=== PATIENT | female | born 1940 | race Caucasian/White ===

== ENCOUNTER 2025-09-27 11:14 | Outpatient (AMB) | payer MEDICARE, SELFPAY ==
--- NOTE | 2025-09-27 11:19 | A.OFFPC_ITS ---
Vital Signs 09/27/25 11:25 Weight 130 lb BP 133/61 Blood Pressure Location Rt brachial Position Sitting Pulse 61 Pulse Source Pulse Oximeter Temp 97.4 F Temp Source Oral Pulse Oximetry (%) 98 Oxygen Delivery Method Room Air Intake Visit Reasons: FINANCIAL REPORTING ACCOUNTANT - Vascular dementia Accompanied by: Other Relationship Allergies latex Allergy (Mild, Verified 09/27/25 11:26) Itching Medication List - Last Reconciled 09/27/25 by Ric Escobedo MD amlodipine (Norvasc) 10 mg PO DAILY ammonium lactate 5% (Lac-Hydrin Five) 1 appl topical BID aspirin 81 mg PO DAILY atorvastatin 80 mg PO BEDTIME clopidogrel 75 mg PO DAILY divalproex 125 mg PO DAILY docusate sodium (Colace) 100 mg PO DAILY duloxetine 20 mg PO DAILY fluticasone propion-salmeterol 250-50 mcg/dose (Advair Diskus) 1 inh inhalation BID losartan 100 mg PO DAILY melatonin 5 mg PO BEDTIME PRN metformin 500 mg PO BID mirtazapine 7.5 mg PO DAILY pantoprazole 20 mg PO DAILY polyethylene glycol 3350 17 grams PO BID potassium chloride ER 20 mEq PO DAILY Tobacco use date assessed: 09/27/25 Fall risk assessment: 1 Fall in past year Last assessed Fall Risk: 09/27/25 Dental Screening Dental Screen Date: 09/27/25 Did you have a dental visit in the last 12 months?: Yes Was dental information given to patient?: Patient has dentist HPI HPI Comments History of Present Illness Details History of Present Illness The patient is an 85 year old individual presenting to [facility] primary care. Type 2 Diabetes Mellitus: The patient has a history of type 2 diabetes and takes metformin 500 mg twice daily. Fiberglasser denies she uses insulin. The patient has not had a recent ophthalmology exam and has not seen a material flow engineer or aviation program manager since returning home from rehab in July. Vascular Dementia and History of Stroke: The patient has a history of a stroke which led to hospitalization and rehab. Imaging has shown chronic, age-undetermined strokes, and the consulting vascular surgeons and neurologists determined the patient would not benefit from surgery. The patient has a diagnosis of vascular dementia and experiences fluctuations in orientation. The patient's [id number] is the healthcare proxy. Constipation: The patient reports experiencing sharp pain with bowel movements (number two). The pain occurs before defecation, is relieved afterward, but requires the patient to lie down and rest for 15 to 30 minutes. The patient takes Colace nightly, but it has not been effective, and no other treatments have been tried. Asthma: The patient has a history of asthma, which is reportedly well-controlled. The patient uses a fluticasone/salmeterol (Advair) inhaler and has not been hospitalized for asthma, possibly ever. The patient currently needs a refill for the inhaler. Hypertension: The patient has a history of high blood pressure. Current medications for this condition include amlodipine 10 mg and losartan 100 mg. Insomnia, Anxiety, and Depression: The patient has issues with sleep and is diagnosed with anxiety and depression. The patient takes duloxetine 20 mg, melatonin 5 mg, and mirtazapine (Remeron) 7.5 mg, but sleep quality is still not very good. Possible Hepatic Cirrhosis: A CT scan brought to the visit showed findings of possible hepatic cirrhosis, which requires further evaluation. Onychodystrophy: The patient has very poorly maintained toenails and complains about them. A foot doctor appointment was made for December, but a sooner appointment is desired. Medications: - Amlodipine 10 mg for hypertension - Aspirin 81 mg - Atorvastatin 80 mg - Clopidogrel 75 mg - Divalproex, indication not specified - Duloxetine 20 mg for anxiety and depre ssion - Fluticasone/salmeterol (Advair) for as thma - Losartan 100 mg for hypertension - Melatonin 5 mg for sleep - Metformin 500 mg twice a day for type 2 diabetes - Mirtazapine (Remeron) 7.5 mg for sleep - Pantoprazole 20 mg - Potassium chloride, indication presume d to be hypokalemia - Colace nightly for constipation Social History: - Functional Status: The patient primari ly uses a wheelchair. - Level of Activity: The patient receive s physical and occupational therapy, is able to stand, and can take a couple of steps. - Living Situation: The patient lives wi th a nephew and has caregivers throughout the day and evening. - Activities of Daily Living: Caregivers assist with repositioning to prevent pressure sores. - Incontinence: The patient uses pull-up s. - Nutritional Intake: Appetite is report ed to be good. - End-of-Life Care: The patient's code s tatus was recently changed, and a DNR was signed. Diagnostic Results: - Labs: Blood work from August was brou ght to the visit for review. - Imaging: A prior CT scan revealed poss ible hepatic cirrhosis. - Imaging: Prior brain imaging showed ev idence of chronic strokes of undetermined age. - Imaging: A CAT scan did not show the a ppendix. Past Medical History - Asthma - Hypertension - Type 2 Diabetes Mellitus - History of cerebrovascular accident (s troke), with subsequent hospitalization and rehabilitation - Vascular dementia - Anxiety and depression - History of a fall - History of a rash covering the body ap proximately one month ago - History of intermittent redness on the right hip, attributed to sleeping position Health Maintenance - Previous primary care provider was a gisela bhatt practitioner who was reportedly unresponsive to calls. - Immunizations: The patient has receive d a flu shot. - The patient has not had a diabetic eye exam, foot exam, or seen a material flow engineer or aviation program manager since being discharged from rehab. - A Do Not Resuscitate (DNR) order was r ecently signed. [facility] Medical History (Updated 09/27/25 @ 12:29 by Ric Escobedo MD) Dependent for wheelchair mobility Onychodystrophy Xerosis cutis Anxiety and depression Insomnia Elevated blood pressure reading without diagnosis of hypertension Moderate persistent asthma Vascular dementia History of stroke Anxiety with depression Diabetes type 2 Constipation Family History (Updated 09/27/25 @ 11:20 by Tata Villeda [facility]) Mother No problems noted. Father No problems noted. Social History Housing: House Patient Tobacco Use Status: Former Tobacco user service: No Current occupational status: retired Cognitive needs: Yes (wheelchair) Hearing needs: No Vision needs: Yes (rx glasses) Questionnaire PHQ-9 Over the last 2 weeks, how often have you been bothered by any of the following problems? 1. Little interest or pleasure in doing things: not at all 2. Feeling down, depressed, or hopeless: not at all 3. Trouble falling or staying asleep, or sleeping too much: not at all 4. Feeling tired or having little energy: not at all 5. Poor appetite or overeating: not at all 6. Feeling bad about yourself - or that you are a failure or have let yourself or your family down: not at all 7. Trouble concentrating on things, such as reading the newspaper or watching television: not at all 8. Moving or speaking so slowly that other people could have noticed. Or the opposite - being so fidgety or restless that you have been moving around a lot more than usual: not at all 9. Thoughts that you would be better off or of hurting yourself in some way: not at all Total score: 0 Depression Screening Interpretation: Negative Depression Screening Done: Yes Source: Developed by Drs. Pj Tsai, Rolanda Perdue, Vivek Maher and colleagues, with an educational delmis from [employer]. Thrive Questionnaire Date Thrive assessed: 09/27/25 I am a: Patient What is your living situation today?: I have a steady place to live Within the past 12 months, did the food you bought not last and you didn't have the money to get more?: Never true Within the past 12 months, did you worry whether your food would run out before you got money to buy more?: Never true Do you have trouble paying for medicines?: No Do you have trouble getting transportation to medical appointments?: No Do you have trouble paying your heating and electricity bill?: No Do you have trouble taking care of your child, family member or friend?: No Do you have trouble with day-to-day activities such as bathing, preparing meals, shopping, managing finances, etc.?: No Are you currently unemployed and looking for a job?: No Are you interested in more education?: No Please select the resources that you would like help with: None THRIVE Score: 0 AUDIT C Alcohol Use Questionnaire (AUDIT-C) 1. How often do you have a drink containing alcohol?: Never Total Score: 0 HOLDEN-7 AMB Questionnaire HOLDEN-7 Date HOLDEN - 7 assessed: 09/27/25 Feeling nervous, anxious, or on edge: 0 = Not at all Not being able to stop or control worryin = Not at all Worrying too much about different things: 0 = Not at all Trouble relaxin = Not at all Being so restless that it is hard to sit still: 0 = Not at all Becoming easily annoyed or irritable: 0 = Not at all Feeling afraid as if something awful might happen: 0 = Not at all Total HOLDEN-7 score (0-4 normal; 5-9 mild; 10-14 moderate; 15-21 severe): 0 Source: Developed by Drs. Pj Tsai, Rolanda Perdue, Vivek Maher and colleagues, with an educational delmis from [employer]. Review of Systems Narrative Review of Systems - Gastrointestinal: Reports pain with bowel movements and lower abdominal pain. - Neurological: Reports experiencing terrible headaches at times. - Musculoskeletal: Reports knee pain. - Psychiatric: Reports issues with sleep. - Integumentary: Complains of poorly maintained toenails. - Constitutional: Reports good appetite. 10-point ROS reviewed and negative except as noted in HPI Physical exam (Primary Care) Vital Signs: Last Vital Signs Temp 97.4 F 09/27/25 11:25 Pulse 61 09/27/25 11:25 BP 133/61 09/27/25 11:25 Pulse Ox 98 09/27/25 11:25 Oxygen Delivery Method Room Air 09/27/25 11:25 Tobacco/Smoking Status: Tobacco use Status Tobacco use date assessed 09/27/25 09/27/25 11:21 Patient Tobacco Use Status Former Tobacco user 09/27/25 11:33 PHQ-9: PHQ-9 Score PHQ-9: Total score 0 09/27/25 12:25 Depression Screening Interpretation: Negative Thrive Assessment: Date of Thrive Assessment Date Thrive assessed 09/27/25 09/27/25 11:21 Narrative Physical Exam General: Well-appearing, in no acute distress. Vital signs: Within normal limits. HEENT: Normocephalic, atraumatic. PERRLA, EOMI. Conjunctiva clear, sclera anicteric. Oropharynx clear, mucous membranes moist. TMs intact bilaterally. Neck: Supple, no lymphadenopathy, no thyromegaly, no JVD or carotid bruits. Cardiovascular: RRR, normal S1/S2, no murmurs, rubs, or gallops. Peripheral pulses 2+ and symmetric. No edema. Respiratory: Lungs clear to auscultation bilaterally, no wheezes, rales, or rhonchi. Normal effort. Abdomen: Soft, non-tender, non-distended. Normoactive bowel sounds. No hepatosplenomegaly, no masses. MSK: Full range of motion, no joint swelling or deformity. Skin: Warm, dry, intact. No rashes, lesions, or pallor. Dry skin noted. Neuro: Alert and oriented x2. Cranial nerves II-XII intact. Strength 5/5 throughout. Sensation intact. Reflexes 2+ symmetric. In a wheelchair Psych: Appropriate mood and affect. Normal judgment and insight. Complains of depression and anxiety. Office Procedures Flu Questionnaire Does the patient have a severe egg allergy?: No Does the patient have severe life threatening allergies?: No Does the patient have a fever or illness today?: No Has the patient ever had Guillain-[place] Syndrome?: No Has the patient ever had any past reaction to a flu shot?: No Results AMB Hemoglobin A1c AMB Hemoglobin A1c 5.2 % Last Edit by Tata Villeda CMA on 09/27/25 12:2 7 Immunizations Fluarix [id number] (PF) 45 mcg (15 mcg x 3)/0.5 mL IM syringe Performing Provider: Ric Escobedo MD Performing Location: [facility] Administered by: Tata Villeda CMA on 09/27/25 12:25 Dose Route Admin Location Dispensed Lot Number Expiration Date [facility] Front End Developer Javascript Html Css 0.5 mL IM Right Deltoid 0.5 mL [id number] 05/07/26 [id number] [employer] [facility] VIS Given Date VIS Provided VIS Publication Date 09/27/25 Single Vaccine 24 Eligibility Eligibility Date Funding Source Not [facility] Eligible 09/27/25 Private Coding Level of Care Code New Pt Level 4 (11909) Diagnoses Hepatic cirrhosis K74.60 Type 2 diabetes mellitus E11.9 History of stroke Z86.73 Vascular dementia F01.50 Constipation K59.00 Anxiety with depression F41.8 Moderate persistent asthma J45.40 Elevated blood pressure reading without diagnosis of hypertension R03.0 Insomnia G47.00 Anxiety and depression F41.9; F32.A Xerosis cutis L85.3 Onychodystrophy L60.3 Dependent for wheelchair mobility Z99.3 Assessment & Plan Assessment & Plan (1) Hepatic cirrhosis: Code(s): K74.60 - Unspecified cirrhosis of liver (2) Type 2 diabetes mellitus: Code(s): E11.9 - Type 2 diabetes mellitus without complications Category: Medical (3) History of stroke: Code(s): Z86.73 - Personal history of transient ischemic attack (TIA), and cerebral infarction without residual deficits Category: Medical (4) Vascular dementia: Code(s): F01.50 - Vascular dementia, unspecified severity, without behavioral disturbance, psychotic disturbance, mood disturbance, and anxiety Category: Medical (5) Constipation: Code(s): K59.00 - Constipation, unspecified Category: Medical (6) Anxiety with depression: Code(s): F41.8 - Other specified anxiety disorders Category: Medical (7) Moderate persistent asthma: Code(s): J45.40 - Moderate persistent asthma, uncomplicated Category: Medical (8) Elevated blood pressure reading without diagnosis of hypertension: Code(s): R03.0 - Elevated blood-pressure reading, without diagnosis of hypertension Category: Medical (9) Insomnia: Code(s): G47.00 - Insomnia, unspecified Category: Medical (10) Anxiety and depression: Code(s): F41.9 - Anxiety disorder, unspecified; F32.A - Depression, unspecified Category: Medical (11) Xerosis cutis: Code(s): L85.3 - Xerosis cutis Category: Medical (12) Onychodystrophy: Code(s): L60.3 - Nail dystrophy Category: Medical (13) Dependent for wheelchair mobility: Code(s): Z99.3 - Dependence on wheelchair Category: Medical Plan Consent Patient was informed and verbally consented to the use of an ambient scribe for clinic note documentation during this visit. Plan 1. Health Maintenance / Establishing Care - Comprehensive lab work will be ordered, including a hemoglobin A1c, lipid panel, thyroid panel, urinalysis, vitamin B12, folate, vitamin D, and a comprehensive metabolic panel to assess liver and kidney function. - A follow-up visit is scheduled in two weeks to review the lab results and formulate an ongoing care plan. 2. Type 2 Diabetes Mellitus - An A1c will be checked to assess glycemic control before deciding on the necessity of a glucometer. - A referral will be placed for an ophthalmology evaluation to screen for diabetic retinopathy. - A referral will be placed to a material flow engineer. - A referral will be placed for a aviation program manager. 3. Constipation - The patient is advised to start MiraLAX in the morning and at night. - The patient should continue taking Colace as a stool softener. 4. Asthma - A new prescription for fluticasone/salmeterol (Advair) will be sent with three refills. 5. Onychodystrophy - A referral to the in-house podiatry service will be placed for evaluation and nail care. 6. Possible Hepatic Cirrhosis - A referral is provided to [facility] for further evaluation based on prior CT scan findings. 7. Insomnia, Anxiety, And Depression - A referral will be made to [facility] for management of insomnia, anxiety, and depression, with a focus on cognitive behavioral therapy. 8. Xerosis Cutis - A prescription will be sent for a moisturizer Lac-Hydrin for dry skin. 9. Vascular Dementia - Decision-making capacity will be further assessed after obtaining more information and lab results on follow-up, though the presence of dementia and a healthcare proxy is documented. Discussion Notes I met with the patient and the patient's caregiver to establish primary care. We reviewed the patient's extensive medical history, including type 2 diabetes, hypertension, asthma, a history of stroke with resulting vascular dementia, and current issues with constipation and insomnia. I explained that a comprehensive set of labs would be ordered today to establish a baseline. I provided a referral to gastroenterology for evaluation of possible hepatic cirrhosis noted on a prior CT scan. For constipation, I recommended adding MiraLAX to the current Colace regimen. I outlined a comprehensive care plan for diabetes, which includes referrals to ophthalmology, podiatry, a material flow engineer, and a aviation program manager, emphasizing the importance of annual screening. We also discussed the patient's sleep difficulties, anxiety, and depression, and I provided a referral to a behavioral health specialist for non-pharmacological management options like cognitive behavioral therapy. I addressed medication needs by refilling the Advair for asthma and prescribing a cream for dry skin. I informed the caregiver that a summary of our visit and all referrals will be provided, and we scheduled a follow-up appointment in two weeks to review all results and progress. Patient Instructions - Please go to the lab to have your blood drawn today. - Start taking MiraLAX once in the morning and once at night for constipation. You can continue taking your Colace as well. - A prescription for your Advair inhaler has been sent to your pharmacy. - A prescription for a skin cream will be sent for your dry skin. - You have been given a referral for a liver specialist (Gastroenterology). Please call the number on the paper to schedule an appointment. - You have been given a phone number for a specialist ([facility]) to help with sleep, anxiety, and depression. Please call them to schedule an appointment. - You will receive phone calls to set up appointments with a foot doctor (natural history collections curator), an eye doctor (lead solutions architect), a material flow engineer, and a aviation program manager. - Please return to the clinic for a follow-up appointment in two weeks to go over your lab results. Medical Decision Making The patient is an 85-year-old individual with multiple, complex chronic conditions including vascular dementia, presenting to [facility] primary care. The immediate goal is to perform a comprehensive assessment, consolidate care, and address acute concerns. A full lab panel, including CMP, CBC, A1c, thyroid studies, and vitamin levels, is necessary for a baseline metabolic and nutritional assessment, particularly given the finding of possible hepatic cirrhosis on a prior CT. Given this CT finding, a referral to gastroenterology is prudent for specialist evaluation. The patient's uncontrolled constipation with associated pain, which has not responded to a stool softener alone, warrants the addition of an osmotic laxative such as MiraLAX. The patient's diabetes management appears fragmented; initiating referrals to ophthalmology, podiatry, nutrition, and a aviation program manager is essential for comprehensive care and prevention of complications. I am holding off on prescribing a glucometer until the A1c result is available, as routine self-monitoring may not be indicated if the patient is not on insulin and has stable control. The patient's polypharmacy for insomnia, depression, and anxiety with suboptimal results suggests a need for a different approach; a referral to behavioral health for non-pharmacological interventions like CBT is a more appropriate step before attempting medication adjustments. A follow-up in two weeks will allow for review of initial test results and assessment of progress on the initiated referrals, which will guide further management. Total Time Statement 30 min Total time spent caring for the patient today includes pre-visit chart review, documentation, review of laboratory and diagnostic imaging results, medication reconciliation, medically necessary evaluation, counseling on diagnoses, care coordination, ordering appropriate tests and medications, review of tests performed by other providers, reporting test results to the patient, and communication with other healthcare providers. Orders: Orders Hepatitis B Surface Antigen Today Z13.9 - Encounter for screening, unspecified Syphilis Screen Today Z13.9 - Encounter for screening, unspecified Comprehensive Met. Panel Today Z13.9 - Encounter for screening, unspecified Hepatitis C Antibody Today Z13.9 - Encounter for screening, unspecified HIV Ab/Ag Today Z13.9 - Encounter for screening, unspecified UA CC w/rflx Micro + Cult Today Z13.9 - Encounter for screening, unspecified AMB Hemoglobin A1c Today Z13.9 - Encounter for screening, unspecified Magnesium Today Z13.9 - Encounter for screening, unspecified Vitamin D 1,25 dihydroxy Today Z13.9 - Encounter for screening, unspecified Hepatitis B Surface Antibody Today Z13.9 - Encounter for screening, unspecified Complete Blood Count Auto Diff Today Z13.9 - Encounter for screening, unspecified TSH reflex Free T4 Today Z13.9 - Encounter for screening, unspecified Lipid Panel Today Z13.9 - Encounter for screening, unspecified Vitamin B12 and Folate Today Z13.9 - Encounter for screening, unspecified Hemoglobin A1c Today Z13.9 - Encounter for screening, unspecified Influenza [id number] Immunization Today Z23 - Encounter for immunization Referrals Nurse Navigator Referral E11.9 - Type 2 diabetes mellitus without complications Nutrition/Dietitian Referral E11.9 - Type 2 diabetes mellitus without complications Ophthalmology Referral E11.9 - Type 2 diabetes mellitus without complications Gastroenterology Referral K74.60 - Unspecified cirrhosis of liver Podiatry Referral E11.9 - Type 2 diabetes mellitus without complications Medications: New polyethylene glycol 3350 17 grams PO BID 476 grams 0RF K59.00 - Constipation, unspecified ammonium lactate 5% (Lac-Hydrin Five) 1 appl topical BID 226 grams 0RF fluticasone propion-salmeterol 250-50 mcg/dose (Advair Diskus) 1 inh inhalation BID 60 ea 3RF
[2025-09-27 11:25] VITALS: BP 133/61; PULSE 61; TEMP 36.3; O2SAT 98
--- OUTSIDE RECORDS SUMMARY | 2025-09-27 17:28 | XMS_ITS | Encounter Summary ---
Author Organization [facility] Address [address] [place] [address] Care Team Providers Care Charter Bus Driver Name Role Phone Flaquita Acevedo MD Primary Care Provider Encounter Details Date Type Department Care Team (Latest Contact Info) Description 05/18/2025 Lab Requisition [facility] - Main Lab 299 [facility] [place] [address] Flaquita Acevedo MD [address] [place] [phone] Chronic obstructive pulmonary disease, unspecified (CMS/HCC V24, CMS/HCC V28); Type 2 diabetes mellitus without complications (CMS/HCC V24, CMS/HCC V28); Dizziness and giddiness; Cerebral infarction, unspecified (CMS/HCC V24, CMS/HCC V28) Social History Tobacco Use Types Packs/Day Years Used Date Smoking Tobacco: Every Day Cigarettes Smokeless Tobacco: Never Alcohol Use Standard Drinks/Week Comments No 0 (1 standard drink = 0.6 oz pur e alcohol) Comments Unknown Sex and Gender Information Value Date Recorded Sex Assigned at Not on file Legal Sex Female 5:56 PM EST Gender Identity Not on file Sexual Orientation Not on file documented as of this encounter Plan of Treatment Not on file documented as of this encounter Procedures Procedure Name Priority Date/Time Associated Diagnosis Comments CBC WITH AUTO DIFFERENTIAL Routine 05/18/2025 7:20 AM EDT Chronic obstructive pulmonary disease, unspecified (CMS/HCC V24, CMS/HCC V28) Type 2 diabetes mellitus without complications (CMS/HCC V24, CMS/HCC V28) Dizziness and giddiness Cerebral infarction, unspecified (CMS/HCC V24, CMS/HCC V28) CBC AND DIFFERENTIAL Routine 05/18/2025 7:20 AM EDT Chronic obstructive pulmonary disease, unspecified (CMS/HCC V24, CMS/HCC V28) Type 2 diabetes mellitus without complications (CMS/HCC V24, CMS/HCC V28) Dizziness and giddiness Cerebral infarction, unspecified (CMS/HCC V24, CMS/HCC V28) AMMONIA Routine 05/18/2025 7:20 AM EDT Chronic obstructive pulmonary disease, unspecified (CMS/HCC V24, CMS/HCC V28) Type 2 diabetes mellitus without complications (CMS/HCC V24, CMS/HCC V28) Dizziness and giddiness Cerebral infarction, unspecified (CMS/HCC V24, CMS/HCC V28) COMPREHENSIVE METABOLIC PANEL Routine 05/18/2025 7:20 AM EDT Chronic obstructive pulmonary disease, unspecified (CMS/HCC V24, CMS/HCC V28) Type 2 diabetes mellitus without complications (CMS/HCC V24, CMS/HCC V28) Dizziness and giddiness Cerebral infarction, unspecified (CMS/HCC V24, CMS/HCC V28) documented in this encounter Results * (ABNORMAL) CBC auto differential (05/18/2025 7:20 AM EDT) [facility] WBC 10.4 4.8 - 10.8 K/mcL LAB HEMETOLOGY METHOD 05/18/2025 9:12 AM EDT [facility] RBC 3.70(L) 3.80 - 4.80 M/mcL LAB HEMETOLOGY METHOD 05/18/2025 9:12 AM T [facility] Hemoglobin 12.3 11.5 - 16.0 g/dL LAB HEMETOLOGY METHOD 05/18/2025 9:12 AM [facility] Hematocrit 36.0 35.0 - 47.0 % LAB HEMETOLOGY METHOD 05/18/2025 9:12 AM [facility] MCV 97.6 79.0 - 98.0 FL LAB HEMETOLOGY METHOD 05/18/2025 9:12 AM [facility] MCH 33.3(H) 27.0 - 32.0 pcg LAB HEMETOLOGY METHOD 05/18/2025 9:12 AM [facility] MCHC 34.2 32.0 - 37.0 g/dL LAB HEMETOLOGY METHOD 05/18/2025 9:12 AM [facility] RDW 13.4 11.0 - 15.0 % LAB HEMETOLOGY METHOD 05/18/2025 9:12 AM [facility] Platelets 331 130 - 400 K/mcL LAB HEMETOLOGY METHOD 05/18/2025 9:12 AM [facility] MPV 11.1(H) 7.0 - 11.0 FL LAB HEMETOLOGY METHOD 05/18/2025 9:12 AM [facility] NRBC 0.0 <1.0 % LAB HEMETOLOGY METHOD 05/18/2025 9:12 AM [facility] NRBC Absolute 0.00 <0.10 K/mcL LAB HEMETOLOGY METHOD 05/18/2025 9:12 AM [facility] Neutrophils Relative 72.1 % LAB HEMETOLOGY METHOD 05/18/2025 9:12 AM [facility] Lymphocytes Relative 14.9 % LAB HEMETOLOGY METHOD 05/18/2025 9:12 AM [facility] Monocytes Relative 10.7 % LAB HEMETOLOGY METHOD 05/18/2025 9:12 AM [facility] Eosinophils Relative 1.2 % LAB HEMETOLOGY METHOD 05/18/2025 9:12 AM [facility] Basophils Relative 0.7 % LAB HEMETOLOGY METHOD 05/18/2025 9:12 AM EDT [facility] Immature Granulocytes Relative 0.4 % LAB HEMETOLOGY METHOD 05/18/2025 9:12 AM EDT [facility] Neutrophils Absolute 7.48(H) 1.50 - 7.00 K/mcL LAB HEMETOLOGY METHOD 05/18/2025 9:12 AM EDT [facility] Lymphocytes Absolute 1.54 1.00 - 5.00 K/mcL LAB HEMETOLOGY METHOD 05/18/2025 9:12 AM EDT [facility] Monocytes Absolute 1.11(H) 0.20 - 1.00 K/mcL LAB HEMETOLOGY METHOD 05/18/2025 9:12 AM EDT [facility] Eosinophils Absolute 0.12 0.00 - 0.50 K/mcL LAB HEMETOLOGY METHOD 05/18/2025 9:12 AM EDT [facility] Basophils Absolute 0.07 0.00 - 0.20 K/mcL LAB HEMETOLOGY METHOD 05/18/2025 9:12 AM EDT [facility] Immature Granulocytes Absolute 0.04(H) 0.00 - 0.03 K/mcL LAB HEMETOLOGY METHOD 05/18/2025 9:12 AM [facility] Blood Venous blood specimen / Unknown Venipuncture / Unknown 05/18/2025 7:20 AM EDT 05/18/2025 8:05 AM EDT us Flaquita Acevedo MD LAB BLOOD ORDERABLES Final Resu lt [facility] [address] [place] [address], * Ammonia (05/18/2025 7:20 AM EDT) Ammonia 18 11 - 35 mcmol/L LAB CHEMISTRY METHOD 05/18/2025 8:38 AM [facility] Blood Venous blood specimen / Unknown Venipuncture / Unknown 05/18/2025 7:20 AM EDT 05/18/2025 8:05 AM EDT us Flaquita Acevedo MD LAB BLOOD ORDERABLES Final Resu lt [facility] [address] [place] [address], * (ABNORMAL) Comprehensive metabolic panel (05/18/2025 7:20 AM EDT) Sodium 140 133 - 145 mmol/L LAB CHEMISTRY METHOD 05/18/2025 9:38 AM [facility] Potassium 3.8 3.5 - 5.5 mmol/L LAB CHEMISTRY METHOD 05/18/2025 9:38 AM [facility] Chloride 109 96 - 110 mmol/L LAB CHEMISTRY METHOD 05/18/2025 9:38 AM [facility] CO2 23 21 - 32 mmol/L LAB CHEMISTRY METHOD 05/18/2025 9:38 AM [facility] Anion Gap 8 3 - 11 LAB CHEMISTRY METHOD 05/18/2025 9:38 AM [facility] Glucose 128(H) 70 - 100 mg/dL LAB CHEMISTRY METHOD 05/18/2025 9:38 AM [facility] BUN 21 5 - 25 mg/dL LAB CHEMISTRY METHOD 05/18/2025 9:38 AM [facility] Creatinine 0.66 0.50 - 1.10 mg/dL LAB CHEMISTRY METHOD 05/18/2025 9:38 AM [facility] eGFR 87 >=60 mL/min/1. 73m2 LAB CHEMISTRY METHOD 05/18/2025 9:38 AM [facility] Comment:Calculation based on the Chronic Kidney Disease Epidemiology Collaboration (CKD-EPI) equation refit without adjustment for race. BUN/Creatinine Ratio 31.8 LAB CHEMISTRY METHOD 05/18/2025 9:38 AM T [facility] Calcium 9.9 8.5 - 10.5 mg/dL LAB CHEMISTRY METHOD 05/18/2025 9:38 AM [facility] AST (SGOT) 21 10 - 42 unit/L LAB CHEMISTRY METHOD 05/18/2025 9:38 AM [facility] ALT (SGPT) 20 10 - 60 unit/L LAB CHEMISTRY METHOD 05/18/2025 9:38 AM [facility] Alkaline Phosphatase 194(H) 42 - 121 unit/L LAB CHEMISTRY METHOD 05/18/2025 9:38 AM [facility] Total Protein 6.6 6.0 - 8.0 g/dL LAB CHEMISTRY METHOD 05/18/2025 9:38 AM [facility] Albumin 3.6 3.2 - 5.0 g/dL LAB CHEMISTRY METHOD 05/18/2025 9:38 AM [facility] Total Bilirubin 1.7(H) 0.0 - 1.4 mg/dL LAB CHEMISTRY METHOD 05/18/2025 9:38 AM [facility] Blood Venous blood specimen / Unknown Venipuncture / Unknown 05/18/2025 7:20 AM EDT 05/18/2025 8:05 AM EDT us Flaquita Acevedo MD LAB BLOOD ORDERABLES Final Resu lt [facility] [address] [place] [address], [place] [phone] documented in this encounter Visit Diagnoses Diagnosis Chronic obstructive pulmonary disease, unspecified ([facility] V24, [facility] V28) Type 2 diabetes mellitus without complications ([facility] V24, [facility] V28) Dizziness and giddiness Cerebral infarction, unspecified ([facility] V24, CMS/[facility] V28) documented in this encounter Care Teams Charter Bus Driver Relationship Specialty Start Date End Date Flaquita Acevedo MD [address] [place] [phone] PCP - General Hospitalist Medicine 05/03/25 documented as of this encounter
--- OUTSIDE RECORDS SUMMARY | 2025-09-27 17:28 | XMS_ITS | Encounter Summary ---
Author Organization [facility] Address [address] [place] [address] Care Team Providers Care Forest Botany Instructor Name Role Phone Flaquita Acevedo MD Primary Care Provider [phone] Encounter Details Date Type Department Care Team (Latest Contact Info) Description 05/15/[address] [facility] - Main Lab [address] [facility] [place] [address] Flaquita Acevedo MD [address] [place] [id number] Type 2 diabetes mellitus without complications (CMS/HCC V24, CMS/HCC V28); Essential (primary) hypertension; Hyperlipidemia, unspecified Social History Tobacco Use Types Packs/Day Years [...] Procedure Name Priority Date/Time Associated Diagnosis Comments COMPLETE BLOOD COUNT Routine 05/15/2025 5:35 AM EDT Type 2 diabetes mellitus without complications (CMS/HCC V24, CMS/HCC V28) Essential (primary) hypertension Hyperlipidemia, unspecified BASIC METABOLIC PANEL Routine 05/15/2025 5:35 AM EDT Type 2 diabetes mellitus without complications (CMS/HCC V24, CMS/HCC V28) Essential (primary) hypertension Hyperlipidemia, unspecified documented in this encounter Results * (ABNORMAL) Basic metabolic panel (05/15/2025 5:35 AM EDT) Sodium 141 133 - 145 mmol/L LAB CHEMISTRY METHOD 05/15/2025 9:01 AM [facility] Potassium 3.6 3.5 - 5.5 mmol/L LAB CHEMISTRY METHOD 05/15/2025 9:01 AM [facility] Chloride 107 96 - 110 mmol/L LAB CHEMISTRY METHOD 05/15/2025 9:01 AM [facility] CO2 27 21 - 32 mmol/L LAB CHEMISTRY METHOD 05/15/2025 9:01 AM [facility] Anion Gap 7 3 - 11 LAB CHEMISTRY METHOD 05/15/2025 9:01 AM [facility] Glucose 105(H) 70 - 100 mg/dL LAB CHEMISTRY METHOD 05/15/2025 9:01 AM [facility] BUN 23 5 - 25 mg/dL LAB CHEMISTRY METHOD 05/15/2025 9:01 AM [facility] Creatinine 0.79 0.50 - 1.10 mg/dL LAB CHEMISTRY METHOD 05/15/2025 9:01 AM [facility] eGFR 74 >=60 mL/min/1. 73m2 LAB CHEMISTRY METHOD 05/15/2025 9:01 AM [facility] Comment:Calculation based on the Chronic Kidney Disease Epidemiology Collaboration (CKD-EPI) equation refit without adjustment for race. BUN/Creatinine Ratio 29.1 LAB CHEMISTRY METHOD 05/15/2025 9:01 AM [facility] Calcium 9.7 8.5 - 10.5 mg/dL LAB CHEMISTRY METHOD 05/15/2025 9:01 AM [facility] Blood Venous blood specimen / Unknown Venipuncture / Unknown 05/15/2025 5:35 AM EDT 05/15/2025 8:05 AM EDT us Flaquita Acevedo MD LAB BLOOD ORDERABLES Final Resu lt [facility] [address] [place] [address], * (ABNORMAL) Complete blood count (05/15/2025 5:35 AM EDT) Pathologist [facility] WBC 8.0 4.8 - 10.8 K/mcL LAB HEMETOLOGY METHOD 05/15/2025 8:39 AM EDT [facility] RBC 3.50(L) 3.80 - 4.80 M/mcL LAB HEMETOLOGY METHOD 05/15/2025 8:39 AM EDT [facility] Hemoglobin 11.8 11.5 - 16.0 g/dL LAB HEMETOLOGY METHOD 05/15/2025 8:39 AM EDT [facility] Hematocrit 35.1 35.0 - 47.0 % LAB HEMETOLOGY METHOD 05/15/2025 8:39 AM EDT [facility] MCV 100.0(H) 79.0 - 98.0 FL LAB HEMETOLOGY METHOD 05/15/2025 8:39 AM EDT [facility] MCH 33.6(H) 27.0 - 32.0 pcg LAB HEMETOLOGY METHOD 05/15/2025 8:39 AM EDT [facility] MCHC 33.6 32.0 - 37.0 g/dL LAB HEMETOLOGY METHOD 05/15/2025 8:39 AM EDT [facility] RDW 13.3 11.0 - 15.0 % LAB HEMETOLOGY METHOD 05/15/2025 8:39 AM EDT [facility] Platelets 328 130 - 400 K/mcL LAB HEMETOLOGY METHOD 05/15/2025 8:39 AM EDT [facility] MPV 10.8 7.0 - 11.0 FL LAB HEMETOLOGY METHOD 05/15/2025 8:39 AM EDT [facility] NRBC 0.0 <1.0 % [facility] 05/15/2025 8:39 AM EDT [facility] NRBC Absolute 0.00 <0.10 K/mcL LAB HEMETOLOGY METHOD 05/15/2025 8:39 AM EDT [facility] Blood Venous blood specimen / Unknown Venipuncture / Unknown 05/15/2025 5:35 AM EDT 05/15/2025 8:05 AM EDT us Flaquita Acevedo MD LAB BLOOD ORDERABLES Final Resu lt [facility] [address] [place] [address], documented in this encounter Visit Diagnoses Diagnosis Type 2 diabetes mellitus without complications (CMS/HCC V24, CMS/HCC V28) Essential (primary) hypertension Unspecified essential hypertension Hyperlipidemia, unspecified documented in this encounter Care Teams Forest Botany Instructor Relationship Specialty Start Date End Date Flaquita Acevedo MD [address] [place] [id number] PCP - General Hospitalist Medicine 05/03/25 documented as of this encounter
--- OUTSIDE RECORDS SUMMARY | 2025-09-27 17:28 | XMS_ITS | Encounter Summary ---
Author Organization [facility] Address [address] [place] [address] Care Team Providers Care Legal Support Specialist Name Role Phone Flaquita Acevedo MD Primary Care Provider [phone] Encounter Details Date Type Department Care Team (Late st Contact Info) Description 05/10/2025 Lab Requisition [facility] - Main Lab [address] [place] [id number] Flaquita Acevedo MD [address] [place] [phone] Essential (primary) hypertension Social History Tobacco Use Types Packs/Day Years [...] Associated Diagnosis Comments COMPLETE BLOOD COUNT Routine 05/10/2025 10:57 AM EDT Essential (primary) hypertension documented in this encounter Results * (ABNORMAL) Complete blood count (05/10/2025 10:57 AM EDT) WBC 8.1 4.8 - 10.8 K/[facility] LAB HEMETOLOGY METHOD 05/10/2025 12:52 PM EDT [facility] RBC 3.70(L) 3.80 - 4.80 M/mcL LAB HEMETOLOGY METHOD 05/10/2025 12:52 PM [facility] Hemoglobin 12.3 11.5 - 16.0 g/dL LAB HEMETOLOGY METHOD 05/10/2025 12:52 PM [facility] Hematocrit 36.7 35.0 - 47.0 % LAB HEMETOLOGY METHOD 05/10/2025 12:52 PM [facility] MCV 99.5(H) 79.0 - 98.0 FL LAB HEMETOLOGY METHOD 05/10/2025 12:52 PM [facility] MCH 33.3(H) 27.0 - 32.0 pcg LAB HEMETOLOGY METHOD 05/10/2025 12:52 PM [facility] MCHC 33.5 32.0 - 37.0 g/dL LAB HEMETOLOGY METHOD 05/10/2025 12:52 PM [facility] RDW 13.6 11.0 - 15.0 % LAB HEMETOLOGY METHOD 05/10/2025 12:52 PM [facility] Platelets 360 130 - 400 K/mcL LAB HEMETOLOGY METHOD 05/10/2025 12:52 PM [facility] MPV 10.6 7.0 - 11.0 FL LAB HEMETOLOGY METHOD 05/10/2025 12:52 PM [facility] NRBC 0.0 <1.0 % LAB HEMETOLOGY METHOD 05/10/2025 12:52 PM [facility] NRBC Absolute 0.00 <0.10 K/mcL LAB HEMETOLOGY METHOD 05/10/2025 12:52 PM [facility] Blood Venous blood specimen / Unknown Venipuncture / Unknown 05/10/2025 10:57 AM EDT 05/10/2025 12:04 PM EDT us Flaquita Acevedo MD LAB BLOOD ORDERABLES Final Resu lt [facility] [address] [place] [address], [place] [phone] documented in this encounter Visit Diagnoses Diagnosis Essential (primary) hypertension Unspecified essential hypertension documented in this encounter Care Teams Legal Support Specialist Relationship Specialty Start Date End Date Flaquita Acevedo MD [address] [place] [phone] PCP - General Hospitalist Medicine 05/03/25 documented as of this encounter
--- OUTSIDE RECORDS SUMMARY | 2025-09-27 17:28 | XMS_ITS | Encounter Summary ---
Author Organization [facility] Address [address] [place] [address] Care Team Providers Care Windlasser Name Role Phone Flaquita Acevedo MD Primary Care Provider [phone] Encounter Details Date Type Department Care Team (Late st Contact Info) Description 06/26/[address] [facility] - Main Lab 299 [facility] [place] [address] Flaquita Acevedo MD [address] [place] [phone] Cerebral infarction, unspecified (CMS/HCC V24, CMS/HCC V28); Essential (primary) hypertension; Chronic obstructive pulmonary disease, unspecified (CMS/HCC V24, CMS/HCC V28) Social History [...] Associated Diagnosis Comments COMPLETE BLOOD COUNT Routine 06/26/2025 10:58 AM EDT Cerebral infarction, unspecified (CMS/HCC V24, CMS/HCC V28) Essential (primary) hypertension Chronic obstructive pulmonary disease, unspecified (CMS/HCC V24, CMS/HCC V28) BASIC METABOLIC PANEL Routine 06/26/2025 10:58 AM EDT Cerebral infarction, unspecified ([facility] V24, [facility] V28) Essential (primary) hypertension Chronic obstructive pulmonary disease, unspecified ([facility] V24, [facility] V28) documented in this encounter Results * (ABNORMAL) Basic metabolic panel (06/26/2025 10:58 AM EDT) Sodium 142 133 - 145 mmol/L LAB CHEMISTRY METHOD 06/26/2025 12:32 PM [facility] Potassium 4.1 3.5 - 5.5 mmol/L LAB CHEMISTRY METHOD 06/26/2025 12:32 PM [facility] Chloride 111(H) 96 - 110 mmol/L LAB CHEMISTRY METHOD 06/26/2025 12:32 PM [facility] CO2 24 21 - 32 mmol/L LAB CHEMISTRY METHOD 06/26/2025 12:32 PM [facility] Anion Gap 7 3 - 11 LAB CHEMISTRY METHOD 06/26/2025 12:32 PM [facility] Glucose 112(H) 70 - 100 mg/dL LAB CHEMISTRY METHOD 06/26/2025 12:32 PM [facility] BUN 14 5 - 25 mg/dL LAB CHEMISTRY METHOD 06/26/2025 12:32 PM [facility] Creatinine 0.66 0.50 - 1.10 mg/dL LAB CHEMISTRY METHOD 06/26/2025 12:32 PM [facility] eGFR 87 >=60 mL/min/1. 73m2 LAB CHEMISTRY METHOD 06/26/2025 12:32 PM [facility] Comment:Calculation based on the Chronic Kidney Disease Epidemiology Collaboration (CKD-EPI) equation refit without adjustment for race. BUN/Creatinine Ratio 21.2 LAB CHEMISTRY METHOD 06/26/2025 12:32 PM [facility] Calcium 9.7 8.5 - 10.5 mg/dL LAB CHEMISTRY METHOD 06/26/2025 12:32 PM EDT [facility] Blood Venous blood specimen / Unknown Venipuncture / Unknown 06/26/2025 10:58 AM EDT 06/26/2025 11:29 AM EDT us Flaquita Acevedo MD LAB BLOOD ORDERABLES Final Resu lt [facility] [address] [place] [address], [place] [phone] * (ABNORMAL) Complete blood count (06/26/2025 10:58 AM EDT) WBC 13.4(H) 4.8 - 10.8 K/mcL LAB HEMETOLOGY METHOD 06/26/2025 11:36 AM EDT [facility] RBC 3.60(L) 3.80 - 4.80 M/[facility] LAB HEMETOLOGY METHOD 06/26/2025 11:36 AM EDT [facility] Hemoglobin 12.3 11.5 - 16.0 g/dL LAB HEMETOLOGY METHOD 06/26/2025 11:36 AM EDT [facility] Hematocrit 39.0 35.0 - 47.0 % LAB HEMETOLOGY METHOD 06/26/2025 11:36 AM EDT [facility] MCV 108.9(H) 79.0 - 98.0 FL LAB HEMETOLOGY METHOD 06/26/2025 11:36 AM EDT [facility] MCH 34.4(H) 27.0 - 32.0 pcg LAB HEMETOLOGY METHOD 06/26/2025 11:36 AM [facility] MCHC 31.5(L) 32.0 - 37.0 g/dL LAB HEMETOLOGY METHOD 06/26/2025 11:36 AM EDT [facility] RDW 15.7(H) 11.0 - 15.0 % LAB HEMETOLOGY METHOD 06/26/2025 11:36 AM EDT [facility] Platelets 356 130 - 400 K/mcL LAB HEMETOLOGY METHOD 06/26/2025 11:36 AM EDT [facility] MPV 11.2(H) 7.0 - 11.0 FL LAB HEMETOLOGY METHOD 06/26/2025 11:36 AM EDT [facility] NRBC 0.0 <1.0 % LAB HEMETOLOGY METHOD 06/26/2025 11:36 AM EDT [facility] NRBC Absolute 0.00 <0.10 K/mcL LAB HEMETOLOGY METHOD 06/26/2025 11:36 AM EDT [facility] Blood Venous blood specimen / Unknown Venipuncture / Unknown 06/26/2025 10:58 AM EDT 06/26/2025 11:29 AM EDT us Flaquita Acevedo MD LAB BLOOD ORDERABLES Final Resu lt [facility] [address] [place] [address], documented in this encounter Visit Diagnoses Diagnosis Cerebral infarction, unspecified (CMS/HCC V24, CMS/HCC V28) Essential (primary) hypertension Unspecified essential hypertension Chronic obstructive pulmonary disease, unspecified (CMS/HCC V24, CMS/HCC V28) documented in this encounter Care Teams Windlasser Relationship Specialty Start Date End Date Flaquita Acevedo MD [address] [place] [phone] PCP - General Hospitalist Medicine 05/03/25 documented as of this encounter
--- OUTSIDE RECORDS SUMMARY | 2025-09-27 17:28 | XMS_ITS | Encounter Summary ---
Author Organization [facility] Address [address] [place] [address] Care Team Providers Care Service Specialist Name Role Phone Flaquita Acevedo MD Primary Care Provider [phone] Encounter Details Date Type Department Care Team (Latest Contact Info) Description 05/25/2025 Lab Requisition [facility] - Main Lab [address] [facility] [place] [address] Flaquita Acevedo MD [address] [place] [phone] Cerebral infarction, unspecified (CMS/HCC V24, CMS/HCC V28); Essential (primary) hypertension; Chronic obstructive pulmonary disease, unspecified (CMS/HCC V24, CMS/HCC V28); Type 2 diabetes mellitus without complications (CMS/HCC V24, CMS/HCC V28) Social History Tobacco [...] Diagnosis Comments CBC WITH AUTO DIFFERENTIAL Routine 05/25/2025 5:35 AM EDT Cerebral infarction, unspecified (CMS/HCC V24, CMS/HCC V28) Essential (primary) hypertension Chronic obstructive pulmonary disease, unspecified (CMS/HCC V24, CMS/HCC V28) Type 2 diabetes mellitus without complications (CMS/HCC V24, CMS/HCC V28) CBC AND DIFFERENTIAL Routine 05/25/2025 5:35 AM EDT Cerebral infarction, unspecified (CMS/HCC V24, CMS/HCC V28) Essential (primary) hypertension Chronic obstructive pulmonary disease, unspecified (CMS/HCC V24, CMS/HCC V28) Type 2 diabetes mellitus without complications (CMS/HCC V24, CMS/HCC V28) BASIC METABOLIC PANEL Routine 05/25/2025 5:35 AM EDT Cerebral infarction, unspecified (CMS/HCC V24, CMS/HCC V28) Essential (primary) hypertension Chronic obstructive pulmonary disease, unspecified (CMS/HCC V24, CMS/HCC V28) Type 2 diabetes mellitus without complications (CMS/HCC V24, CMS/HCC V28) documented in this encounter Results * (ABNORMAL) CBC auto differential (05/25/2025 5:35 AM EDT) [facility] WBC 8.5 4.8 - 10.8 K/mcL LAB HEMETOLOGY METHOD 05/25/2025 10:27 AM [facility] LAB RBC 3.40(L) 3.80 - 4.80 M/mcL LAB HEMETOLOGY METHOD 05/25/2025 10:27 AM [facility] LAB Hemoglobin 11.4(L) 11.5 - 16.0 g/dL LAB HEMETOLOGY METHOD 05/25/2025 10:27 AM [facility] LAB Hematocrit 32.9(L) 35.0 - 47.0 % LAB HEMETOLOGY METHOD 05/25/2025 10:27 AM [facility] LAB MCV 97.9 79.0 - 98.0 FL LAB HEMETOLOGY METHOD 05/25/2025 10:27 AM [facility] LAB MCH 33.9(H) 27.0 - 32.0 pcg LAB HEMETOLOGY METHOD 05/25/2025 10:27 AM [facility] LAB MCHC 34.7 32.0 - 37.0 g/dL LAB HEMETOLOGY METHOD 05/25/2025 10:27 AM [facility] LAB RDW 13.2 11.0 - 15.0 % LAB HEMETOLOGY METHOD 05/25/2025 10:27 AM [facility] LAB Platelets 312 130 - 400 K/mcL LAB HEMETOLOGY METHOD 05/25/2025 10:27 AM [facility] LAB MPV 10.7 7.0 - 11.0 FL LAB HEMETOLOGY METHOD 05/25/2025 10:27 AM [facility] LAB NRBC 0.0 <1.0 % LAB HEMETOLOGY METHOD 05/25/2025 10:27 AM [facility] LAB NRBC Absolute 0.00 <0.10 K/mcL LAB HEMETOLOGY METHOD 05/25/2025 10:27 AM [facility] LAB Neutrophils Relative 72.1 % LAB HEMETOLOGY METHOD 05/25/2025 10:27 AM [facility] Lymphocytes Relative 15.9 % LAB HEMETOLOGY METHOD 05/25/2025 10:27 AM [facility] Monocytes Relative 9.2 % LAB HEMETOLOGY METHOD 05/25/2025 10:27 AM [facility] Eosinophils Relative 1.6 % LAB HEMETOLOGY METHOD 05/25/2025 10:27 AM [facility] Basophils Relative 0.7 % LAB HEMETOLOGY METHOD 05/25/2025 10:27 AM [facility] LAB Immature Granulocytes Relative 0.5 % LAB HEMETOLOGY METHOD 05/25/2025 10:27 AM [facility] LAB Neutrophils Absolute 6.14 1.50 - 7.00 K/mcL LAB HEMETOLOGY METHOD 05/25/2025 10:27 AM EDT [facility] Lymphocytes Absolute 1.35 1.00 - 5.00 K/mcL LAB HEMETOLOGY METHOD 05/25/2025 10:27 AM EDT [facility] Monocytes Absolute 0.78 0.20 - 1.00 K/[facility] LAB HEMETOLOGY METHOD 05/25/2025 10:27 AM EDT [facility] Eosinophils Absolute 0.14 0.00 - 0.50 K/[facility] LAB HEMETOLOGY METHOD 05/25/2025 10:27 AM EDT [facility] Basophils Absolute 0.06 0.00 - 0.20 K/[facility] LAB HEMETOLOGY METHOD 05/25/2025 10:27 AM EDT [facility] Immature Granulocytes Absolute 0.04(H) 0.00 - 0.03 K/[facility] LAB HEMETOLOGY METHOD 05/25/2025 10:27 AM EDT [facility] Blood Venous blood specimen / Unknown Venipuncture / Unknown 05/25/2025 5:35 AM EDT 05/25/2025 9:55 AM EDT us Flaquita Acevedo MD LAB BLOOD ORDERABLES Final Resu lt [facility] [address] [place] [address], * (ABNORMAL) Basic metabolic panel (05/25/2025 5:35 AM EDT) Sodium 141 133 - 145 mmol/L LAB CHEMISTRY METHOD 05/25/2025 10:40 AM EDT [facility] Potassium 3.1(L) 3.5 - 5.5 mmol/L LAB CHEMISTRY METHOD 05/25/2025 10:40 AM EDT [facility] Chloride 105 96 - 110 mmol/L LAB CHEMISTRY METHOD 05/25/2025 10:40 AM EDT [facility] CO2 27 21 - 32 mmol/L LAB CHEMISTRY METHOD 05/25/2025 10:40 AM T [facility] Anion Gap 9 3 - 11 LAB CHEMISTRY METHOD 05/25/2025 10:40 AM [facility] Glucose 86 70 - 100 mg/dL LAB CHEMISTRY METHOD 05/25/2025 10:40 AM [facility] BUN 18 5 - 25 mg/dL LAB CHEMISTRY METHOD 05/25/2025 10:40 AM T [facility] Creatinine 0.59 0.50 - 1.10 mg/dL LAB CHEMISTRY METHOD 05/25/2025 10:40 AM [facility] LAB eGFR 90 >=60 mL/min/1. 73m2 LAB CHEMISTRY METHOD 05/25/2025 10:40 AM [facility] Comment:Calculation based on the Chronic Kidney Disease Epidemiology Collaboration (CKD-EPI) equation refit without adjustment for race. BUN/Creatinine Ratio 30.5 LAB CHEMISTRY METHOD 05/25/2025 10:40 AM [facility] Calcium 9.4 8.5 - 10.5 mg/dL LAB CHEMISTRY METHOD 05/25/2025 10:40 AM [facility] LAB Blood Venous blood specimen / Unknown Venipuncture / Unknown 05/25/2025 5:35 AM EDT 05/25/2025 9:55 AM EDT us Flaquita Acevedo MD LAB BLOOD ORDERABLES Final Resu lt [facility] [address] [place] [address], documented in this encounter Visit Diagnoses Diagnosis Cerebral infarction, unspecified ([facility] V24, [facility] V28) Essential (primary) hypertension Unspecified essential hypertension Chronic obstructive pulmonary disease, unspecified ([facility] V24, [facility] V28) Type 2 diabetes mellitus without complications ([facility] V24, [facility] V28) documented in this encounter Care Teams Service Specialist Relationship Specialty Start Date End Date Flaquita Acevedo MD [address] [place] [id number] PCP - General Hospitalist Medicine 05/03/25 documented as of this encounter
--- OUTSIDE RECORDS SUMMARY | 2025-09-27 17:28 | XMS_ITS | Encounter Summary ---
Author Organization [facility] Address [address] [place] [address] Care Team Providers Care Shark Biologist Name Role Phone Flaquita Acevedo MD Primary Care Provider Encounter Details Date Type Department Care Team (Late st Contact Info) Description 06/30/2025 Lab Requisition [facility] - Main Lab [address] [place] [phone] Flaquita Acevedo MD [address] [place] [phone] Urinary tract infection, site not specified Social History Tobacco Use Types Packs/Day Years [...] Procedure Name Priority Date/Time Associated Diagnosis Comments URINALYSIS WITH REFLEX MICROSCOPIC Routine 06/29/2025 1:20 PM EDT Urinary tract infection, site not specified GOLDBERG URINE CULTURE TUBE Routine 06/29/2025 1:20 PM EDT Urinary tract infection, site not specified URINALYSIS WITH REFLEX MICROSCOPIC Routine 06/29/2025 1:20 PM EDT Urinary tract infection, site not specified documented in this encounter Results * Goldberg urine culture tube (06/29/2025 1:20 PM EDT) Pathologist [facility] Extra Tube Hold for add-ons. 06/30/2025 12:01 PM EDT [facility] Comment:Auto resulted. Urine Urine specimen from urethra / Unknown Non-blood Collection / Unknown 06/29/2025 1:20 PM EDT 06/30/2025 10:33 AM EDT us Flaquita Acevedo MD LAB URINE ORDERABLES Final Resu lt [facility] [address] [place] [address], [place] [phone] * (ABNORMAL) Urinalysis with reflex microscopic (06/29/2025 1:20 PM EDT) Pathologist [facility] Specific [place] Urine 1.021 1.003 - 1.030 LAB URINALYSIS - AUTOMATED METHOD 06/30/2025 12:00 PM [facility] pH, Urine 6.0 5.0 - 8.0 pH LAB URINALYSIS - AUTOMATED METHOD 06/30/2025 12:00 PM [facility] Leukocytes, Urine Moderate(A) Negative LAB URINALYSIS - AUTOMATED METHOD 06/30/2025 12:00 PM [facility] Nitrite, Urine Negative Negative LAB URINALYSIS - AUTOMATED METHOD 06/30/2025 12:00 PM [facility] Protein, Urine 30(A) <=Trace mg/dL LAB URINALYSIS - AUTOMATED METHOD 06/30/2025 12:00 PM [facility] Glucose, Urine Negative Negative mg/dL LAB URINALYSIS - AUTOMATED METHOD 06/30/2025 12:00 PM [facility] Ketones, Urine Trace(A) Negative mg/dL LAB URINALYSIS - AUTOMATED METHOD 06/30/2025 12:00 PM [facility] Urobilinogen , Urine 1.0 0.2 - 1.0 mg/dL LAB URINALYSIS - AUTOMATED METHOD 06/30/2025 12:00 PM [facility] Bilirubin, Urine Small(A) Negative LAB URINALYSIS - AUTOMATED METHOD 06/30/2025 12:00 PM [facility] Blood, Urine Moderate(A) Negative LAB URINALYSIS - AUTOMATED METHOD 06/30/2025 12:00 PM [facility] RBC, Urine 34.8(H) 0 - 4 /HPF LAB URINALYSIS - AUTOMATED METHOD 06/30/2025 12:00 PM [facility] WBC, Urine 76.3(H) 0 - 4 /HPF LAB URINALYSIS - AUTOMATED METHOD 06/30/2025 12:00 PM [facility] Squamous Epithelial, Urine >100(H) 0 - 60 /LPF LAB URINALYSIS - AUTOMATED METHOD 06/30/2025 12:00 PM [facility] Non-Squamous Epithelial, Urine 5-10 TRANSITIONAL EPI /LPF LAB URINALYSIS - AUTOMATED METHOD 06/30/2025 12:00 PM [facility] Bacteria, Urine Negative Negative /HPF LAB URINALYSIS - AUTOMATED METHOD 06/30/2025 12:00 PM [facility] Hyaline Casts, Urine 20.9(H) 0 - 3 /LPF LAB URINALYSIS - AUTOMATED METHOD 06/30/2025 12:00 PM [facility] Urine Urine specimen from urethra / Unknown Non-blood Collection / Unknown 06/29/2025 1:20 PM EDT 06/30/2025 10:33 AM EDT us Flaquita Acevedo MD LAB URINE ORDERABLES Final Resu lt [facility] [address] [place], [place] [address] [phone] documented in this encounter Visit Diagnoses Diagnosis Urinary tract infection, site not specified documented in this encounter Care Teams Shark Biologist Relationship Specialty Start Date End Date Flaquita Acevedo MD [address] [place] [phone] PCP - General Hospitalist Medicine 05/03/25 documented as of this encounter
--- OUTSIDE RECORDS SUMMARY | 2025-09-27 17:28 | XMS_ITS | Encounter Summary ---
Author Organization [facility] Address [address] [place] [address] Care Team Providers Care Director Phone Name Role Phone Flaquita Acevedo MD Primary Care Provider [phone] Encounter Details Date Type Department Care Team (Late st Contact Info) Description 05/03/2025 Lab Requisition [facility] - Main Lab [address] [place] [phone] Flaquita Acevedo MD [address] [place] [phone] Anemia, unspecified; Hypokalemia Social History Tobacco Use Types Packs/Day Years [...] Associated Diagnosis Comments COMPLETE BLOOD COUNT Routine 05/03/2025 5:19 AM EDT Anemia, unspecified Hypokalemia BASIC METABOLIC PANEL Routine 05/03/2025 5:19 AM EDT Anemia, unspecified Hypokalemia documented in this encounter Results * (ABNORMAL) Basic metabolic panel (05/03/2025 5:19 AM EDT) Sodium 143 133 - 145 mmol/L LAB CHEMISTRY METHOD 05/03/2025 10:59 AM [facility] Potassium 3.2(L) 3.5 - 5.5 mmol/L LAB CHEMISTRY METHOD 05/03/2025 10:59 AM [facility] Chloride 107 96 - 110 mmol/L LAB CHEMISTRY METHOD 05/03/2025 10:59 AM [facility] CO2 24 21 - 32 mmol/L LAB CHEMISTRY METHOD 05/03/2025 10:59 AM [facility] Anion Gap 12(H) 3 - 11 LAB CHEMISTRY METHOD 05/03/2025 10:59 AM [facility] Glucose 116(H) 70 - 100 mg/dL LAB CHEMISTRY METHOD 05/03/2025 10:59 AM [facility] BUN 11 5 - 25 mg/dL LAB CHEMISTRY METHOD 05/03/2025 10:59 AM [facility] Creatinine 0.60 0.50 - 1.10 mg/dL LAB CHEMISTRY METHOD 05/03/2025 10:59 AM [facility] eGFR 89 >=60 mL/min/1. 73m2 LAB CHEMISTRY METHOD 05/03/2025 10:59 AM [facility] Comment:Calculation based on the Chronic Kidney Disease Epidemiology Collaboration (CKD-EPI) equation refit without adjustment for race. BUN/Creatinine Ratio 18.3 LAB CHEMISTRY METHOD 05/03/2025 10:59 AM [facility] Calcium 8.6 8.5 - 10.5 mg/dL LAB CHEMISTRY METHOD 05/03/2025 10:59 AM [facility] Blood Venous blood specimen / Unknown Venipuncture / Unknown 05/03/2025 5:19 AM EDT 05/03/2025 8:51 AM EDT us Flaquita Acevedo MD LAB BLOOD ORDERABLES Final Resu lt [facility] [address] [place] [address], * (ABNORMAL) Complete blood count (05/03/2025 5:19 AM EDT) [facility] Signature WBC 6.3 4.8 - 10.8 K/mcL LAB HEMETOLOGY METHOD 05/03/2025 10:26 AM EDT [facility] RBC 3.50(L) 3.80 - 4.80 M/mcL LAB HEMETOLOGY METHOD 05/03/2025 10:26 AM EDT [facility] Hemoglobin 11.6 11.5 - 16.0 g/dL LAB HEMETOLOGY METHOD 05/03/2025 10:26 AM [facility] Hematocrit 34.7(L) 35.0 - 47.0 % LAB HEMETOLOGY METHOD 05/03[facility]25 [facility] MCV 98.9(H) 79.0 - 98.0 FL LAB HEMETOLOGY METHOD 05/03/2025 10:26 AM EDT [facility] MCH 33.0(H) 27.0 - 32.0 pcg LAB HEMETOLOGY METHOD 05/03/2025 10[facility] MCHC 33.4 32.0 - 37.0 g/dL LAB HEMETOLOGY METHOD 05/03/2025 10:26 AM EDT [facility] RDW 13.1 11.0 - 15.0 % LAB HEMETOLOGY METHOD 05/03/2025 10:26 AM EDT [facility] Platelets 342 130 - 400 K/mcL LAB HEMETOLOGY METHOD 05/03/2025 10:[facility] MPV 10.1 7.0 - 11.0 FL LAB HEMETOLOGY METHOD 05/03/2025 10:26 AM EDT [facility] NRBC 0.0 <1.0 % LAB HEMETOLOGY METHOD 05/03/2025 10:26 AM EDT [facility] NRBC Absolute 0.00 <0.10 K/mcL LAB HEMETOLOGY METHOD 05/03/2025 10:26 AM EDT [facility] Blood Venous blood specimen / Unknown Venipuncture / Unknown 05/03/2025 5:19 AM EDT 05/03/2025 8:51 AM EDT us Flaquita Acevedo MD LAB BLOOD ORDERABLES Final Resu lt [facility] [address] [place] [address], [place] [phone] documented in this encounter Visit Diagnoses Diagnosis Anemia, unspecified Hypokalemia Hypopotassemia documented in this encounter Care Teams Director Phone Relationship Specialty Start Date End Date Flaquita Acevedo MD [address] [place] [phone] PCP - General Hospitalist Medicine 05/03/25 documented as of this encounter
--- OUTSIDE RECORDS SUMMARY | 2025-09-27 17:28 | XMS_ITS | Clinical Summary ---
Author Organization [address] [facility] Address [address] [place] [phone] Phone Care Team Providers Care Refrigeration Specialist Name Role Phone Flaquita Acevedo MD Primary Care Provider [phone] Encounters Date Type Department Care Team Description 06/30/2025 Lab Requisition [facility] - Main Lab [address] [place] [address] Flaquita Acevedo MD Urinary tract infection, site not specified from Last 3 Months Surgical History Surgery Date Site/Laterality Comments BACK SURGERY 11/07/15 PROCEDURE: HISTORICAL BACK SURGERY; COMMENT: L3- L4 decompression. BACK SURGERY 11/24/15 PROCEDURE: HISTORICAL BACK SURGERY; COMMENT: redo L3-4,discectomy L2-3, L4-5 FOOT SURGERY Bilateral PROCEDURE: HISTORICAL FOOT SURGERY; COMMENT: Bunionectomy HYSTERECTOMY PROCEDURE: HISTORICAL HYSTERECTOMY; COMMENT: at 31 CHOLECYSTECTOMY PROCEDURE: HISTORICAL CHOLECYSTECTOMY HAND SURGERY 03/17/2016 Left PROCEDURE: HISTORICAL HAND SURGERY COLONOSCOPY 06/2014 PROCEDURE: HISTORICAL COLONOSCOPY; COMMENT: in [place] CATARACT EXTRACTION PROCEDURE: HISTORICAL CATARACT REMOVAL Medical History Medical History Date Comments Asthma 08/14/2016 DX:Asthma Fibromyalgia 08/14/2016 DX:Fibromyalgia Arteriovenous malformation (AVM) 08/14/2016 DX:Arteriovenous malformation (AVM) Hyperlipidemia 08/14/2016 DX:Hyperlipidemi a GERD (gastroesophageal reflux disease) 08/14/2016 DX:GERD (gastroesophageal reflux disease) Lactose intolerance 08/14/2016 DX:Lactose i ntolerance Anxiety 08/14/2016 DX:Anxiety Chronic obstructive pulmonar y disease (COPD) ([facility] V24, CMS/[facility] V28) 08/14/2016 DX:Chronic obstructi ve pulmonary disease (COPD) ([facility]) DDD (degenerative disc disease), lumbar 6 DX:DDD (degenerative disc disease), lumbar Depression with anxiety 08/19/2016 DX:Depre ssion with anxiety Fatty liver 08/14/2016 DX:Fatty liver 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 DX:Flexion c ontracture; COMMENT: Residual, L long finger PIP Flexor tenosynovitis of finger 08/14/2016 D X:Flexor tenosynovitis of finger; COMMENT: Stenosing, L long finger , R thumb - Dr Monte History of GI bleed 08/14/2016 DX:History o f GI bleed IBS (irritable bowel syndrome) 08/14/2016 D X:IBS (irritable bowel syndrome) Iron deficiency anemia 08/14/2016 DX:Iron d eficiency anemia Kidney stone on left side 08/14/2016 DX:Kid karina stone on left side; COMMENT: 11/02/15 CT Low back pain 08/19/2016 DX:Low back pain Migraines 08/14/2016 DX:Migraines Osteoarthritis 08/14/2016 DX:Osteoarthriti s Osteoporosis 08/14/2016 DX:Osteoporosis Restless legs syndrome (RLS) 08/19/2016 DX: Restless legs syndrome (RLS) Spinal stenosis of lumbar region 08/14/2016 DX:Spinal stenosis of lumbar region Type 2 diabetes mellitus wit h microalbuminuria, without long-term current use of insulin ([facility] V24, [facility] V28) 10/14/2017 DX:Type 2 diabetes mellitus with microalbuminuria, without long-term current use of insulin ([facility]) Microalbuminuria 10/14/2017 DX:Microalbumin uria Hypertension 11/18/2017 DX:Hypertension Microalbuminuria 10/14/2017 DX:Microalbumin uria Family History Medical History Relation Name Comments Colon cancer Aunt 1 Leukemia Aunt 2 Diabetes Father Other: Heart attack Father age 61-MD Mental illness Mother depression, a sthma, joint problems Prostate cancer Other Relation Name Status Comments Aunt 1 Aunt 2 Brother Alive Father Other Mother Other Social History Tobacco Use Types Packs/Day Years [...] on file Sexual Orientation Not on file Obstetrics History Plan of Treatment Health Maintenance Due Date Last Done Comments Diabetes: Annual Foot Exam 1952 Diabetes: Annual Retina Eye Exam 1950 Hepatitis A Vaccines (1 of 2 - Risk 2-dose series) 1961 Hepatitis B Vaccines (1 of 3 - Risk 3-dose series) 2002 RSV Immunization Adult Patients (1 - 1-dose 75+ series) 2017 Depression Screening 11/08/2024 Diabetes: Annual Urine Albumin-Creatinine Ratio (uACR) 05/04/2025 Diabetes: Blood Sugar Control Test (HGBA1C) 05/04/2025 03/16/2023 Falls Risk Assessment 05/04/2025 Medicare Annual Wellness Visit 05/04/2025 Social Influencers of Health Screening 05/04/2025 COVID-19 Vaccine ( season) 2025 07/23/2021, 02/02/2021, 01/06/2021 Influenza Vaccine (#1) 2025 , 08/30/2022, 08/16/2022, Additional history exists Diabetes: Annual GFR (Glomerular Filtration Rate) 06/26/2026 06/26/2025, 06/08/2025, 05/25/2025, Additional history exists Hypertension/CHF/CAD Annual BMP Blood Test 06/26/2026 06/26/2025, 06/08/2025, 05/25/2025, Additional history exists DTaP,Tdap,and Td Vaccines (2 - Td or Tdap) 12/07/2027 12/07/2017 Cholesterol Screening (Lipid Panel) 07/06/2029 07/06/2024 Osteoporosis Screening (Bone Density Screening) 01/30/2032 01/29/2022, 04/04/2019 Pneumococcal Vaccine: 50+ Years Completed 12/07/2017, 03/22/2016 Zoster Vaccines Completed 05/02/2018, 02/03/2018 HIB Vaccines Aged Out No longer eligi ble based on patient's age to complete this topic HPV Vaccines Aged Out No longer eligi ble based on patient's age to complete this topic IPV Vaccines Aged Out No longer eligi ble based on patient's age to complete this topic MMR Vaccines Aged Out No longer eligi ble based on patient's age to complete this topic Meningococcal ACWY Vaccine Aged Out N o longer eligible based on patient's age to complete this topic Meningococcal B Vaccine Aged Out No l onger eligible based on patient's age to complete this topic RSV Immunization Patients Under 20 months Aged Out No longer eligible based on patient's age to complete this topic Varicella Vaccines Aged Out No longer eligible based on patient's age to complete this topic Procedures Procedure Name Priority Date/Time Associated Diagnosis Comments GOLDBERG URINE CULTURE TUBE Routine 06/29/2025 1:20 PM EDT Urinary tract infection, site not specified URINALYSIS WITH REFLEX MICROSCOPIC Routine 06/29/2025 1:20 PM EDT Urinary tract infection, site not specified URINALYSIS WITH REFLEX MICROSCOPIC Routine 06/29/2025 1:20 PM EDT Urinary tract infection, site not specified BASIC METABOLIC PANEL Routine 06/26/2025 10:58 AM EDT Cerebral infarction, unspecified (CMS/HCC V24, CMS/HCC V28) Essential (primary) hypertension Chronic obstructive pulmonary disease, unspecified (CMS/HCC V24, CMS/HCC V28) NANCY DEXA AXIAL SKELETON Routine 04/04/2019 2:45 PM EDT Asymptomatic menopausal state from Last 3 Months or Most Recently Relevant to Health Maintenance Results * (ABNORMAL) Urinalysis with reflex microscopic (06/29/2025 1:20 PM EDT) Specific [place] Urine 1.021 1.003 - 1.030 LAB URINALYSIS - AUTOMATED METHOD 06/30/2025 12:00 PM EDT [facility] pH, Urine 6.0 5.0 - 8.0 pH LAB URINALYSIS - AUTOMATED METHOD 06/30/2025 12:00 PM EDT [facility] Leukocytes, Urine Moderate(A) Negative LAB URINALYSIS - AUTOMATED METHOD 06/30/2025 12:00 PM [facility] Nitrite, Urine Negative Negative LAB URINALYSIS - AUTOMATED METHOD 06/30/2025 12:00 PM [facility] Protein, Urine 30(A) <=Trace mg/dL LAB URINALYSIS - AUTOMATED METHOD 06/30/2025 12:00 PM [facility] Glucose, Urine Negative Negative mg/dL LAB URINALYSIS - AUTOMATED METHOD 06/30/2025 12:00 PM [facility] Ketones, Urine Trace(A) Negative mg/dL LAB URINALYSIS - AUTOMATED METHOD 06/30/2025 12:00 PM [facility] Urobilinogen , Urine 1.0 0.2 - 1.0 mg/dL LAB URINALYSIS - AUTOMATED METHOD 06/30/2025 12:00 PM [facility] Bilirubin, Urine Small(A) Negative LAB URINALYSIS - AUTOMATED METHOD 06/30/2025 12:00 PM [facility] Blood, Urine Moderate(A) Negative LAB URINALYSIS - AUTOMATED METHOD 06/30/2025 12:00 PM [facility] RBC, Urine 34.8(H) 0 - 4 /HPF LAB URINALYSIS - AUTOMATED METHOD 06/30/2025 12:00 PM [facility] WBC, Urine 76.3(H) 0 - 4 /HPF LAB URINALYSIS - AUTOMATED METHOD 06/30/2025 12:00 PM [facility] Squamous Epithelial, Urine >100(H) 0 - 60 /LPF LAB URINALYSIS - AUTOMATED METHOD 06/30/2025 12:00 PM [facility] Non-Squamous Epithelial, Urine 5-10 TRANSITIONAL EPI /LPF LAB URINALYSIS - AUTOMATED METHOD 06/30/2025 12:00 PM [facility] Bacteria, Urine Negative Negative /HPF LAB URINALYSIS - AUTOMATED METHOD 06/30/2025 12:00 PM EDT [facility] Hyaline Casts, Urine 20.9(H) 0 - 3 /LPF LAB URINALYSIS - AUTOMATED METHOD 06/30/2025 12:00 PM EDT [facility] Urine Urine specimen from urethra / Unknown Non-blood Collection / Unknown 06/29/2025 1:20 PM EDT 06/30/2025 10:33 AM EDT Flaquita Acevedo MD LAB URINE ORDERABLES Final Resu lt [facility] [address] [place] [address], [place] [phone] * Goldberg urine culture tube (06/29/2025 1:20 PM EDT) Extra Tube Hold for add-ons. 06/30/2025 12:01 PM EDT [facility] Comment:Auto resulted. Urine Urine specimen from urethra / Unknown Non-blood Collection / Unknown 06/29/2025 1:20 PM EDT 06/30/2025 10:33 AM EDT us Flaquita Acevedo MD LAB URINE ORDERABLES Final Resu lt [facility] [address] [place] [address], [place] [phone] * (ABNORMAL) Basic metabolic panel (06/26/2025 10:58 AM EDT) Sodium 142 133 - 145 mmol/L LAB CHEMISTRY METHOD 06/26/2025 12:32 PM EDT [facility] Potassium 4.1 3.5 - 5.5 mmol/L LAB CHEMISTRY METHOD 06/26/2025 12:32 PM EDT [facility] Chloride 111(H) 96 - 110 mmol/L LAB CHEMISTRY METHOD 06/26/2025 12:32 PM EDT [facility] CO2 24 21 - 32 mmol/L LAB CHEMISTRY METHOD 06/26/2025 12:32 PM EDT [facility] Anion Gap 7 3 - 11 LAB CHEMISTRY METHOD 06/26/2025 12:32 PM EDT [facility] Glucose 112(H) 70 - 100 mg/dL LAB CHEMISTRY METHOD 06/26/2025 12:32 PM EDT [facility] BUN 14 5 - 25 mg/dL LAB CHEMISTRY METHOD 06/26/2025 12:32 PM EDT [facility] Creatinine 0.66 0.50 - 1.10 mg/dL LAB CHEMISTRY METHOD 06/26/2025 12:32 PM EDT [facility] eGFR 87 >=60 mL/min/1. 73m2 LAB CHEMISTRY METHOD 06/26/2025 12:32 PM EDT [facility] Comment:Calculation based on the Chronic Kidney Disease Epidemiology Collaboration (CKD-EPI) equation refit without adjustment for race. BUN/Creatinine Ratio 21.2 LAB CHEMISTRY METHOD 06/26/2025 12:32 PM EDT [facility] Calcium 9.7 8.5 - 10.5 mg/dL LAB CHEMISTRY METHOD 06/26/2025 12:32 PM EDT [facility] Blood Venous blood specimen / Unknown Venipuncture / Unknown 06/26/2025 10:58 AM EDT 06/26/2025 11:29 AM EDT us Flaquita Acevedo MD LAB BLOOD ORDERABLES Final Resu lt [facility] [address] [place] [address], * NANCY DEXA AXIAL SKELETON (04/04/2019 2:45 PM EDT) Anatomical Region Laterality Modality Mammography 04/04/2019 1:46 PM EDT Narrative 04/04/2019 2:45 PM EDT [facility] Diagnostic Imaging Department [address] [place] [id number] Patient: TANIA FIGUEROA/Age/Sex: 1940 - 79 - F Unit#: [id number] Location/Status: SPDIMAM/REG CLI Mnem[facility] Ordering Physician: EDGARDO DUNAWAY MD Nancy Dexa Axial Skeleton - 04/04/19 - HISTORY: The patient is a 79-year-old postmenopausal female with clinical concern for metabolic bone disease. FINDINGS: Dual energy x-ray absorptiometry of the lumbar spine and femurs is performed. The mean bone mineral density at L1-L4 (with the exclusion of L2 and L3) is 1.132 gm/cm2 which is 97% of that of young normals and 114% of that of age matched controls. This yields a T-score of -0.3 and a Z-score of 1.1 and there is therefore no evidence of osteoporosis or osteopenia here. The mean bone mineral density of the femurs bilaterally is 1.011 gm/cm2 which is 100% of that of young normals and 125% of that of age matched controls. This yields a T-score of 0.0 and a Z-score of 1.6 and there is therefore no evidence of osteoporosis or osteopenia here. IMPRESSION: 1. There is no evidence of osteoporosis or osteopenia. 2. FRAX analysis yields a 10-year probability of major osteoporotic fracture of 11.0% and a 10-year probability of hip fracture of 2.3%. Code 51671 Dictating Physician: BRODIE PALACIO MD Electronically Signed by: BRODIE PALACIO MD Dic Date/Time: 04/04/19 1443 Sign date/Time: 04/04/19 1445 Procedure Note Brodie Palacio - 10/27/2022 [facility] Diagnostic Imaging Department [address] [place] [address] Patient: TANIA FIGUEROA /Age/Sex: 1940 - 79 - F Unit#: [id number] Location/Status: [facility] Mnemonic/Ordering [facility] Ordering Physician: EDGARDO DUNAWAY MD Nancy Dexa Axial Skeleton - 04/04/19 - HISTORY: The patient is a 79-year-old postmenopausal female withclinical concern for metabolic bone disease. FINDINGS: Dual energy x-ray absorptiometry of the lumbar spine and femursis performed. The mean bone mineral density at L1-L4 (with the exclusion ofL2 and L3) is 1.132 gm/cm2 which is 97% of that of young normals and 114% of thatof age matched controls. This yields a T-score of -0.3 and a Z-score of 1.1and there is therefore no evidence of osteoporosis or osteopenia here. The mean bone mineral density of the femurs bilaterally is 1.011 gm/dp0mzjbh is 100% of that of young normals and 125% of that of age matched controls.This yields a T-score of 0.0 and a Z-score of 1.6 and there is therefore noevidence of osteoporosis or osteopenia here. IMPRESSION: 1. There is no evidence of osteoporosis or osteopenia. 2. FRAX analysis yields a 10-year probability of major osteoporoticfracture of 11.0% and a 10-year probability of hip fracture of 2.3%. Code 88069 Dictating Physician: BRODIE PALACIO MD Electronically Signed by: BRODIE PALACIO MD Dic Date/Time: 04/04/19 1443 Sign date/Time: 04/04/19 1445 Edgardo Dunaway MD IMG BI PROCEDURES Final Result from Last 3 Months or Most Recently Relevant to Health Maintenance Insurance MEDICARE [facility]) [facility] Care Teams Refrigeration Specialist Relationship Specialty Start Date End Date Flaquita Acevedo MD [address] [place] [phone] PCP - General Hospitalist Medicine 05/03/25
--- OUTSIDE RECORDS SUMMARY | 2025-09-27 17:28 | XMS_ITS ---
Author Name [facility] Organization Unknown Care Team Organization Name Specialty Phone Email Start Date End Da te [facility] Termed, PROVIDER Primary Care 11/16/202206/08
--- OUTSIDE RECORDS SUMMARY | 2025-09-27 17:28 | XMS_ITS | Encounter Summary ---
Author Organization [facility] Address [address] [place] [address] Care Team Providers Care Vegetable Trimmer Name Role Phone Flaquita Acevedo MD Primary Care Provider [phone] Encounter Details Date Type Department Care Team (Late st Contact Info) Description 06/08/[address] [facility] - Main Lab [address] [facility] [place] [address] Flaquita Acevedo MD [address] [place] [id number] Cerebral infarction, unspecified (CMS/HCC V24, CMS/HCC V28); [...] Diagnosis Comments CBC WITH AUTO DIFFERENTIAL Routine 06/08/2025 4:55 AM EDT Cerebral infarction, unspecified (CMS/HCC V24, CMS/HCC V28) Essential (primary) hypertension Hyperlipidemia, unspecified CBC AND DIFFERENTIAL Routine 06/08/2025 4:55 AM EDT Cerebral infarction, unspecified (CMS/HCC V24, CMS/HCC V28) Essential (primary) hypertension Hyperlipidemia, unspecified BASIC METABOLIC PANEL Routine 06/08/2025 4:55 AM EDT Cerebral infarction, unspecified ([facility]/HCC V24, [facility] V28) Essential (primary) hypertension Hyperlipidemia, unspecified documented in this encounter Results * (ABNORMAL) CBC auto differential (06/08/2025 4:55 AM EDT) Pathologist [facility] WBC 12.0(H) 4.8 - 10.8 K/mcL LAB HEMETOLOGY METHOD 06/08/2025 9:44 AM [facility] RBC 2.00(L) 3.80 - 4.80 M/mcL LAB HEMETOLOGY METHOD 06/08/2025 9:44 AM [facility] Hemoglobin 7.1(L) 11.5 - 16.0 g/dL LAB HEMETOLOGY METHOD 06/08/2025 9:44 AM [facility] Hematocrit 22.9(L) 35.0 - 47.0 % LAB HEMETOLOGY METHOD 06/08/2025 9:44 AM [facility] MCV 114.5(H) 79.0 - 98.0 FL LAB HEMETOLOGY METHOD 06/08/2025 9:44 AM [facility] MCH 35.5(H) 27.0 - 32.0 pcg LAB HEMETOLOGY METHOD 06/08/2025 9:44 AM [facility] MCHC 31.0(L) 32.0 - 37.0 g/dL LAB HEMETOLOGY METHOD 06/08/2025 9:44 AM [facility] RDW 18.9(H) 11.0 - 15.0 % LAB HEMETOLOGY METHOD 06/08/2025 9:44 AM [facility] Platelets 400 130 - 400 K/mcL LAB HEMETOLOGY METHOD 06/08/2025 9:44 AM [facility] MPV 11.2(H) 7.0 - 11.0 FL LAB HEMETOLOGY METHOD 06/08/2025 9:44 AM [facility] NRBC 0.5 <1.0 % LAB HEMETOLOGY METHOD 06/08/2025 9:44 AM [facility] NRBC Absolute 0.06 <0.10 K/mcL LAB HEMETOLOGY METHOD 06/08/2025 9:44 AM [facility] Neutrophils Relative 68.5 % LAB HEMETOLOGY METHOD 06/08/2025 9:44 AM [facility] Lymphocytes Relative 19.9 % LAB HEMETOLOGY METHOD 06/08/2025 9:44 AM [facility] Monocytes Relative 9.5 % LAB HEMETOLOGY METHOD 06/08/2025 9:44 AM [facility] Eosinophils Relative 1.1 % LAB HEMETOLOGY METHOD 06/08/2025 9:44 AM [facility] Basophils Relative 0.3 % LAB HEMETOLOGY METHOD 06/08/2025 9:44 AM [facility] Immature Granulocytes Relative 0.7 % LAB HEMETOLOGY METHOD 06/08/2025 9:44 AM [facility] Neutrophils Absolute 8.18(H) 1.50 - 7.00 K/mcL LAB HEMETOLOGY METHOD 06/08/2025 9:44 AM [facility] Lymphocytes Absolute 2.38 1.00 - 5.00 K/mcL LAB HEMETOLOGY METHOD 06/08/2025 9:44 AM [facility] Monocytes Absolute 1.14(H) 0.20 - 1.00 K/mcL LAB HEMETOLOGY METHOD 06/08/2025 9:44 AM [facility] Eosinophils Absolute 0.13 0.00 - 0.50 K/mcL LAB HEMETOLOGY METHOD 06/08/2025 9:44 AM EDT [facility] Basophils Absolute 0.04 0.00 - 0.20 K/[facility] LAB [facility] CARETOLOG[facility] METHOD 06/08/2025 9:44 AM EDT [facility] Immature Granulocytes Absolute 0.08(H) 0.00 - 0.03 K/[facility] LAB [facility] CARETOLOGY METHOD 06/08/2025 9:44 AM EDT [facility] Blood Venous blood specimen / Unknown Venipuncture / Unknown 06/08/2025 4:55 AM EDT 06/08/2025 8:32 AM EDT us Flaquita Acevedo MD LAB BLOOD ORDERABLES Final Resu lt [facility] [address] [place] [address], * (ABNORMAL) Basic metabolic panel (06/08/2025 4:55 AM EDT) Sodium 144 133 - 145 mmol/L LAB CHEMISTRY METHOD 06/08/2025 9:36 AM [facility] Potassium 4.2 3.5 - 5.5 mmol/L LAB CHEMISTRY METHOD 06/08/2025 9:36 AM [facility] Chloride 113(H) 96 - 110 mmol/L LAB CHEMISTRY METHOD 06/08/2025 9:36 AM [facility] CO2 25 21 - 32 mmol/L LAB CHEMISTRY METHOD 06/08/2025 9:36 AM [facility] Anion Gap 6 3 - 11 LAB CHEMISTRY METHOD 06/08/2025 9:36 AM [facility] Glucose 94 70 - 100 mg/dL LAB CHEMISTRY METHOD 06/08/2025 9:36 AM [facility] BUN 31(H) 5 - 25 mg/dL LAB CHEMISTRY METHOD 06/08/2025 9:36 AM EDT [facility] Creatinine 0.86 0.50 - 1.10 mg/dL LAB CHEMISTRY METHOD 06/08/2025 9:36 AM EDT [facility] eGFR 67 >=60 mL/min/1. 73m2 LAB CHEMISTRY METHOD 06/08/2025 9:36 AM EDT [facility] Comment:Calculation based on the Chronic Kidney Disease Epidemiology Collaboration (CKD-EPI) equation refit without adjustment for race. BUN/Creatinine Ratio 36.0 LAB CHEMISTRY METHOD 06/08/2025 9:36 AM T [facility] Calcium 8.7 8.5 - 10.5 mg/dL LAB CHEMISTRY METHOD 06/08/2025 9:36 AM EDT [facility] Blood Venous blood specimen / Unknown Venipuncture / Unknown 06/08/2025 4:55 AM EDT 06/08/2025 8:32 AM EDT us Flaquita Acevedo MD LAB BLOOD ORDERABLES Final Resu lt [facility] [address] [place] [address], documented in this encounter Visit Diagnoses Diagnosis Cerebral infarction, unspecified (CMS/HCC V24, CMS/HCC V28) Essential (primary) hypertension Unspecified essential hypertension Hyperlipidemia, unspecified documented in this encounter Care Teams Vegetable Trimmer Relationship Specialty Start Date End Date Flaquita Acevedo MD [address] [place] [phone] PCP - General Hospitalist Medicine 05/03/25 documented as of this encounter
== END 2025-09-27 12:23 | disposition home or self-care (01) ==
PROVIDERS: Visit Provider Student in an Organized Health Care Education/Training Program
DX: K74.60 Unspecified cirrhosis of liver (principal); E11.9 Type 2 diabetes mellitus without complications; Z86.73 Personal history of transient ischemic attack (TIA), and cerebral infarction without residual deficits; F01.50 Vascular dementia, unspecified severity, without behavioral disturbance, psychotic disturbance, mood disturbance, and anxiety; K59.00 Constipation, unspecified; F41.8 Other specified anxiety disorders; J45.40 Moderate persistent asthma, uncomplicated; R03.0 Elevated blood-pressure reading, without diagnosis of hypertension; G47.00 Insomnia, unspecified; F41.9 Anxiety disorder, unspecified; F32.A Depression, unspecified; L85.3 Xerosis cutis; L60.3 Nail dystrophy; Z99.3 Dependence on wheelchair; Z23 Encounter for immunization

== ENCOUNTER → 2025-09-27 11:14 | Outpatient (BNVA) | payer MEDICARE, SELFPAY | LOC: CF 13:38 | PROVIDERS: PCP Student in an Organized Health Care Education/Training Program; Visit Provider Student in an Organized Health Care Education/Training Program | DX: F01.50 Vascular dementia, unspecified severity, without behavioral disturbance, psychotic disturbance, mood disturbance, and anxiety (principal); K74.60 Unspecified cirrhosis of liver; E11.9 Type 2 diabetes mellitus without complications; K59.00 Constipation, unspecified; F41.8 Other specified anxiety disorders; F32.A Depression, unspecified; J45.40 Moderate persistent asthma, uncomplicated; R03.0 Elevated blood-pressure reading, without diagnosis of hypertension; G47.00 Insomnia, unspecified; L85.3 Xerosis cutis; L60.3 Nail dystrophy; Z86.73 Personal history of transient ischemic attack (TIA), and cerebral infarction without residual deficits; Z99.3 Dependence on wheelchair; Z13.30 Encounter for screening examination for mental health and behavioral disorders, unspecified; Z23 Encounter for immunization | CPT/HCPCS: 90471; 90656; 96127; 99202 ==

== ENCOUNTER 2025-10-08 10:03 | Outpatient (REF) | payer MEDICARE, SELFPAY ==
[2025-10-08 10:38] LABS: MANUAL DIFF FLAG NO
[2025-10-08 11:15] LABS: Hematocrit 26.5 % (37.0-47.0); Hemoglobin 8.3 g/dl (12.0-16.0); Imm Gran Abs Auto 0.04 X10*3/uL (0.00-0.03); Imm Gran Pct Auto 0.4 % (0.0-0.4); Lymphocytes Absolute Auto 2.1 X10*3/uL (1.2-4.9); Mean Corpuscular HGB Conc 31.3 g/dl (31.0-35.0); Mean Corpuscular Hemoglobin 32.4 pg (27.0-33.0); Mean Corpuscular Volume 103.5 fL (80.0-98.0); NRBC Abs Auto 0.000 X10*3/uL (0.0-0.012); NRBC Pct Auto 0.0 /100WBC (0.0-0.2); Platelet Count 416 X10*3/uL (160-400); Red Blood Count 2.56 X10*6/uL (4.20-5.50); White Blood Count 10.5 X10*3/uL (4.8-10.8)
[2025-10-08 12:02] LABS: HBS Num1 2.31 mIU/mL (0-7.99); HBsAGNum1 0.32 S/CO (0.00-0.99); HIV Num 1 0.09 S/CO (0.00-0.99); Hepatitis B Surface Antigen Negative (Negative); ~HepC Num1 0.08 S/CO (0.00-0.79); ~Hepatitis B Surface Antibody NONREACTIVE (Nonreactive); ~Hepatitis C Antibody Nonreactive (Nonreactive)
[2025-10-08 12:03] LABS: Syphilis Screen Nonreactive (Nonreactive)
[2025-10-08 12:16] LABS: Anion Gap 10 (12-20)
[2025-10-08 12:20] LABS: Alanine Aminotransferase 10 U/L (0-31); Albumin Level 3.2 g/dL (3.5-5.0); Alkaline Phosphatase 152 U/L (39-117); Aspartate Amino Transferase 34 U/L (5-31); Blood Urea Nitrogen 20 mg/dL (9-16); Calcium 8.9 mg/dL (8.4-10.2); Carbon Dioxide 24 mmol/L (22-29); Chloride 116 mmol/L (96-108); Cholesterol 147 mg/dL (<200); Estimated Glomerular Filt Rate > 60; HDL Cholesterol 47 mg/dL (>40); Magnesium 1.7 mg/dL (1.6-2.6); Potassium 4.3 mmol/L (3.3-5.1); Sodium 146 mmol/L (135-145); Total Protein 6.1 g/dL (6.5-8.0); Triglycerides 141 mg/dL (<150)
[2025-10-08 12:25] LABS: Folate 9.5 ng/mL (> or = 4.0); Vitamin B12 748 pg/mL (200-900)
[2025-10-12 14:28] LABS: VITAMIN D (1,25 OH) D3 10 pg/mL; Vit D (1,25-Dihydroxy) Total 10 pg/mL (18-72); Vitamin D (1,25 OH) D2 <8 pg/mL
== END 2025-10-08 10:04 | disposition home or self-care (01) ==
LOC: HO.LAB 10:03
PROVIDERS: PCP Student in an Organized Health Care Education/Training Program; Visit Provider Student in an Organized Health Care Education/Training Program
DX: Z13.89 Encounter for screening for other disorder (principal); Z13.6 Encounter for screening for cardiovascular disorders; Z13.1 Encounter for screening for diabetes mellitus; Z11.4 Encounter for screening for human immunodeficiency virus [HIV]; Z11.59 Encounter for screening for other viral diseases; Z72.89 Other problems related to lifestyle
CPT/HCPCS: 36415; 80053; 80061; 82607; 82652; 82746; 83036; 83735; 84443; 85025; 86706; 86780; 86803; 87340; 87389

== ENCOUNTER 2025-10-24 12:31 | Outpatient (AMB) | payer MEDICARE, SELFPAY ==
--- NOTE | 2025-10-24 12:39 | MHC.PC.OV ---
Vital Signs 10/24/25 13:05 BP 154/63 H Blood Pressure Location Lt brachial Position Sitting Respiration 16 Pulse 88 Pulse Source Pulse Oximeter Temp 98.1 F Temp Source Oral Pulse Oximetry (%) 99 Oxygen Delivery Method Room Air Intake Visit Reasons: lab review Accompanied by: Self / Same As Patient Allergies latex Allergy (Mild, Verified 10/24/25 12:59) Itching amoxicillin Allergy (Unknown, Verified 10/24/25 12:59) Unknown Medication List - Last Reconciled 10/24/25 by Ric Escobedo MD amlodipine (Norvasc) 10 mg PO DAILY aspirin 81 mg PO DAILY atorvastatin 80 mg PO BEDTIME clopidogrel 75 mg PO DAILY divalproex 125 mg PO DAILY docusate sodium (Colace) 100 mg PO DAILY duloxetine 20 mg PO DAILY fluticasone propion-salmeterol 250-50 mcg/dose (Advair Diskus) 1 inh inhalation BID lorazepam (Ativan) 0.5 mg PO DAILY PRN losartan 100 mg PO DAILY melatonin 5 mg PO BEDTIME PRN metformin 500 mg PO BID mirtazapine 7.5 mg PO DAILY pantoprazole 20 mg PO DAILY polyethylene glycol 3350 17 grams PO BID Tobacco use date assessed: 10/24/25 Fall risk assessment: 1 Fall in past year Last assessed Fall Risk: 10/24/25 Dental Screening Dental Screen Date: 10/24/25 Did you have a dental visit in the last 12 months?: Yes Was dental information given to patient?: Patient has dentist HPI HPI Comments History of Present Illness Details History of Present Illness The patient is an 85 year old female presenting for follow-up and management of chronic conditions, including hip pain. Anemia: The patient has a history of anemia for the last eight years, requiring intermittent iron infusions and blood transfusions. Her last iron transfusion was in January, and she reports experiencing significant fatigue without treatment. Prior to her colon surgery, she had a history of internal stomach bleeding, which manifested as hematuria and hematochezia. Recent labs show low H&H and RBCs with an elevated MCV, though her B12 and folate levels are normal. The patient has experienced difficulty with phlebotomy, requiring multiple attempts for blood draws. Abdominal Pain and Constipation: The patient reports a chronic, sharp pain localized to her right hip area that occurs when she has the urge to defecate and is relieved by having a bowel movement. She experiences difficulty with bowel movements even with the use of MiraLAX. This pain has been present since at least March, at which time she was admitted to a hospital in [place] for the same complaint. A hip scan performed during that hospitalization reportedly found no abnormalities. Irritable Bowel Syndrome: The patient has a history of irritable bowel syndrome and underwent colon surgery three years ago for internal bleeding. Her last colonoscopy was performed a couple of years ago. Surgical History: - Colon surgery (approximately 3 years ago for internal bleeding) Medications: - MiraLAX as needed for constipation - Lisinopril - Potassium (discontinued during this visit) Social History: - Functional Status: Receives care from visiting nurses ([employer]). - Nutrition: Patient previously drank Ensure daily but has stopped. Diagnostic Results: - CBC: Hemoglobin and hematocrit are low, RBCs are low, and MCV is slightly high. - CMP: Sodium is 146. Potassium is 4.3. Random glucose is 100. Calcium is 8.9. Magnesium is 1.7. Total protein is low at 6.1 and albumin is low at 3.2. Renal function is good. Total bilirubin is good. - Liver Function Tests: AST is mildly elevated at 34 (cutoff 31). ALT is normal. Alkaline phosphatase is elevated at 152 (cutoff 117). - Lipid Panel: Triglycerides, cholesterol, LDL, and HDL are all good. - HbA1c: 5.1%. - Vitamins/Hormones: Vitamin B12, vitamin D, folate, and thyroid levels are good. - Infectious Disease Screen: Negative for syphilis, hepatitis B, hepatitis C, and HIV. - Past Imaging: A hip scan performed in March was negative. Past Medical History - Chronic anemia, requiring intermittent iron and blood transfusions. - Irritable bowel syndrome. - History of gastrointestinal bleeding prior to surgery. - History of recurrent urinary tract infections. - Hospitalization in March for hip pain, with a negative workup including a hip scan. Health Maintenance - Colonoscopy: Patient is due for a colonoscopy, as the last one was several years ago. - Diet: Advised to increase protein intake due to low total protein and albumin levels. [facility] Medical History (Updated 10/24/25 @ 19:02 by Ric Escobedo MD) Irritable bowel syndrome Abdominal pain Elevated liver enzymes History of transfusion Hypertension Iron deficiency anemia Dependent for wheelchair mobility Onychodystrophy Xerosis cutis Anxiety and depression Insomnia Elevated blood pressure reading without diagnosis of hypertension Moderate persistent asthma Vascular dementia History of stroke Anxiety with depression Diabetes type 2 Constipation Surgical History (Updated 10/24/25 @ 13:04 by Orion Boucher CMA) History of gastric surgery History of back surgery Family History Mother No problems noted. Father No problems noted. Social History (Updated 10/24/25 @ 13:05 by Orion Boucher CMA) Housing: House Alcohol intake: never Patient Tobacco Use Status: Former Tobacco user e-Cigarette/Vaping Use: Never Used Second Hand Smoke Exposure: No service: No Current occupational status: retired Current occupational exposures/hazards: No Cognitive needs: Yes (wheelchair) Hearing needs: No Vision needs: Yes (rx glasses) Questionnaire PHQ-9 Over the last 2 weeks, how often have you been bothered by any of the following problems? 1. Little interest or pleasure in doing things: not at all 2. Feeling down, depressed, or hopeless: not at all 3. Trouble falling or staying asleep, or sleeping too much: not at all 4. Feeling tired or having little energy: not at all 5. Poor appetite or overeating: not at all 6. Feeling bad about yourself - or that you are a failure or have let yourself or your family down: not at all 7. Trouble concentrating on things, such as reading the newspaper or watching television: not at all 8. Moving or speaking so slowly that other people could have noticed. Or the opposite - being so fidgety or restless that you have been moving around a lot more than usual: not at all 9. Thoughts that you would be better off or of hurting yourself in some way: not at all Total score: 0 Depression Screening Interpretation: Negative Depression Screening Done: Yes Source: Developed by Drs. Pj Tsai, Rolanda Perdue, Vivek Maher and colleagues, with an educational delmis from [employer]. Thrive Questionnaire Date Thrive assessed: 10/24/25 I am a: Patient What is your living situation today?: I have a steady place to live Within the past 12 months, did the food you bought not last and you didn't have the money to get more?: Never true Within the past 12 months, did you worry whether your food would run out before you got money to buy more?: Never true Do you have trouble paying for medicines?: No Do you have trouble getting transportation to medical appointments?: No Do you have trouble paying your heating and electricity bill?: No Do you have trouble taking care of your child, family member or friend?: No Do you have trouble with day-to-day activities such as bathing, preparing meals, shopping, managing finances, etc.?: No Are you currently unemployed and looking for a job?: No Are you interested in more education?: No Please select the resources that you would like help with: None THRIVE Score: 0 AUDIT C Alcohol Use Questionnaire (AUDIT-C) 1. How often do you have a drink containing alcohol?: Never Total Score: 0 HOLDEN-7 AMB Questionnaire HOLDEN-7 Date HOLDEN - 7 assessed: 10/24/25 Feeling nervous, anxious, or on edge: 0 = Not at all Not being able to stop or control worryin = Not at all Worrying too much about different things: 0 = Not at all Trouble relaxin = Not at all Being so restless that it is hard to sit still: 0 = Not at all Becoming easily annoyed or irritable: 0 = Not at all Feeling afraid as if something awful might happen: 0 = Not at all Total HOLDEN-7 score (0-4 normal; 5-9 mild; 10-14 moderate; 15-21 severe): 0 Source: Developed by Drs. Pj Tsai, Rolanda Perdue, Vivek Maher and colleagues, with an educational delmis from [email or web address]. Review of Systems Narrative Review of Systems - Constitutional: Reports fatigue. - Gastrointestinal: Reports sharp pain in the right hip area which is relieved by defecation. Reports constipation and difficulty with bowel movements. Denies other abdominal pain. - Musculoskeletal: Reports pain in the hip which improves when lying down. - Neurological: Denies sleep onset insomnia. 10-point ROS reviewed and negative except as noted in HPI Physical exam (Primary Care) Vital Signs: Last Vital Signs Temp 98.1 F 10/24/25 13:05 Pulse 88 10/24/25 13:05 Resp 16 10/24/25 13:05 BP 154/63 H 10/24/25 13:05 Pulse Ox 99 10/24/25 13:05 Oxygen Delivery Method Room Air 10/24/25 13:05 Tobacco/Smoking Status: Tobacco use Status Tobacco use date assessed 10/24/25 10/24/25 12:41 Patient Tobacco Use Status Former Tobacco user 10/24/25 13:05 e-Cigarette/Vaping Use Never Used 10/24/25 13:05 PHQ-9: PHQ-9 Score PHQ-9: Total score 0 10/24/25 19:03 Depression Screening Interpretation: Negative Thrive Assessment: Date of Thrive Assessment Date Thrive assessed 10/24/25 10/24/25 12:41 Narrative Physical Exam General: Well-appearing, in no acute distress. Vital signs: Within normal limits. HEENT: Normocephalic, atraumatic. PERRLA, EOMI. Conjunctiva clear, sclera anicteric. Oropharynx clear, mucous membranes moist. TMs intact bilaterally. Neck: Supple, no lymphadenopathy, no thyromegaly, no JVD or carotid bruits. Cardiovascular: RRR, normal S1/S2, no murmurs, rubs, or gallops. Peripheral pulses 2+ and symmetric. No edema. Respiratory: Lungs clear to auscultation bilaterally, no wheezes, rales, or rhonchi. Normal effort. Abdomen: Soft, non-tender, non-distended. Normoactive bowel sounds. No hepatosplenomegaly, no masses. MSK: Full range of motion, no joint swelling or deformity. in a wheelchair . Complains of sharp pain in the right hip area, which alleviates after bowel movements. Skin: Warm, dry, intact. No rashes, lesions, or pallor. Neuro: Alert and oriented x2. Cranial nerves II-XII intact. Strength 5/5 throughout. Sensation intact. gait not assessed due to wheelchair use Psych: Appropriate mood and affect. Normal judgment and insight. Coding Level of Care Code Est Pt Level 3 (71652) Add On Problem Visit Only Diagnoses Iron deficiency anemia D50.9 Diabetes type 2 E11.9 Anxiety and depression F41.9; F32.A Constipation K59.00 Moderate persistent asthma J45.40 Xerosis cutis L85.3 Dependent for wheelchair mobility Z99.3 Hypertension I10 Abdominal pain R10.9 Irritable bowel syndrome K58.9 Elevated liver enzymes R74.8 History of stroke Z86.73 Vascular dementia F01.50 Assessment & Plan Assessment & Plan (1) Iron deficiency anemia: Code(s): D50.9 - Iron deficiency anemia, unspecified Category: Medical (2) Diabetes type 2: Code(s): E11.9 - Type 2 diabetes mellitus without complications Category: Medical (3) Anxiety and depression: Code(s): F41.9 - Anxiety disorder, unspecified; F32.A - Depression, unspecified Category: Medical (4) Constipation: Code(s): K59.00 - Constipation, unspecified Category: Medical (5) Moderate persistent asthma: Code(s): J45.40 - Moderate persistent asthma, uncomplicated Category: Medical (6) Xerosis cutis: Code(s): L85.3 - Xerosis cutis Category: Medical (7) Dependent for wheelchair mobility: Code(s): Z99.3 - Dependence on wheelchair Category: Medical (8) Hypertension: Code(s): I10 - Essential (primary) hypertension Category: Medical (9) Abdominal pain: Code(s): R10.9 - Unspecified abdominal pain Category: Medical (10) Irritable bowel syndrome: Code(s): K58.9 - Irritable bowel syndrome, unspecified Category: Medical (11) Elevated liver enzymes: Code(s): R74.8 - Abnormal levels of other serum enzymes Category: Medical (12) History of stroke: Code(s): Z86.73 - Personal history of transient ischemic attack (TIA), and cerebral infarction without residual deficits Category: Medical (13) Vascular dementia: Code(s): F01.50 - Vascular dementia, unspecified severity, without behavioral disturbance, psychotic disturbance, mood disturbance, and anxiety Category: Medical Plan Consent Patient was informed and verbally consented to the use of an ambient scribe for clinic note documentation during this visit. Plan 1. Anemia - A referral will be placed to Hematology for evaluation and management of chronic anemia. - In the interim, the patient will start taking oral iron supplements with vitamin C daily. - The iron should be taken one hour before or two hours after eating to improve absorption. - The possibility of home iron infusions can be discussed with the clinical engineering manager. 2. Abdominal Pain And Constipation - A referral to Gastroenterology has been placed for further evaluation of her abdominal pain and irritable bowel syndrome. - The family prefers the referral be directed to [facility]. - The patient is advised that new iron supplementation may worsen constipation. - To manage constipation, it is recommended to increase water and fiber intake, and use MiraLAX or other stool softeners as needed. 3. Hypokalemia Management - The potassium supplement is discontinued. - The rationale is that her potassium level is normal at 4.3, and she is taking lisinopril, which can retain potassium and increase the risk of hyperkalemia. 4. Abnormal Liver Function And Nutrition - The patient's low total protein and albumin levels may be related to diet, and she is encouraged to increase her protein intake. - The mildly elevated AST and alkaline phosphatase will be monitored, considering both potential liver and bone etiologies. Discussion Notes I reviewed the patient's lab results with her and her caregiver. I explained that her blood counts indicate anemia, which is consistent with her history. I have placed referrals to Hematology for management of her chronic anemia and to Gastroenterology for her chronic abdominal pain and irritable bowel syndrome. We will start iron pills with vitamin C in the interim, and I advised them that this could worsen her constipation, which should be managed with increased fluids, fiber, and MiraLAX. I also explained that I have stopped her potassium supplement because her blood level is normal and continuing it while she takes lisinopril could be dangerous. We discussed that her other labs, including lipids and thyroid function, are good. I informed them that I will review her extensive medical records that were recently received and will contact them if any further imaging or testing is needed. Patient Instructions - I have put in a referral for you to see a blood specialist (clinical engineering manager) for your low blood count. Their office will call to schedule an appointment. - I have also put in a referral for you to see a stomach and bowel specialist (sales service supervisor) for your hip pain. Their office will call to schedule an appointment. - Please start taking one iron pill with vitamin C every day. You can take this one hour before you eat a meal or two hours after you eat. - Be aware that the iron pills can make it harder to have a bowel movement. Please drink more water, eat more fiber, and use MiraLAX if needed to prevent this. - You should stop taking your potassium pills. Your blood levels are normal and you do not need them anymore. - Please try to increase the amount of protein in your diet to help with your low protein levels. Medical Decision Making The patient is an 85-year-old female with a complex medical history presenting for follow-up and management of her chronic conditions, primarily anemia and abdominal pain. Her laboratory studies reveal a macrocytic anemia with low H&H and elevated MCV, but with normal vitamin B12 and folate levels. Given her extensive history of requiring iron and blood transfusions, likely related to a pre-surgical history of GI bleeding, a referral to Hematology/Oncology is warranted for ongoing management. Oral iron with vitamin C is being initiated as a temporary measure until she can be seen by the specialist. The patient's complaint of right hip pain that is relieved by defecation, in the context of her history of colon surgery and irritable bowel syndrome, points toward a gastrointestinal etiology. A prior workup in March, including a hip scan, was unrevealing, further supporting a non-musculoskeletal cause. A referral has been placed to Gastroenterology for further evaluation, which will likely include determining the need for a colonoscopy. Review of her CMP prompted discontinuation of her potassium supplement; her level is 4.3, and concurrent use with lisinopril poses a risk for hyperkalemia. Mildly elevated AST and alkaline phosphatase, along with hypoalbuminemia, were noted; these may be related to nutrition or her underlying conditions and will require monitoring. I will perform a detailed review of her extensive outside medical records to guide further care. Total Time Statement 20 min Total time spent caring for the patient today includes pre-visit chart review, documentation, review of laboratory and diagnostic imaging results, medication reconciliation, medically necessary evaluation, counseling on diagnoses, care coordination, ordering appropriate tests and medications, review of tests performed by other providers, reporting test results to the patient, and communication with other healthcare providers. Orders: Orders US abdomen limited 10/24/25 R74.8 - Abnormal levels of other serum enzymes Influenza Immunization 10/24/25 Z23 - Encounter for immunization Referrals Hematology & Oncology Referral D50.9 - Iron deficiency anemia, unspecified, Z92.89 - Personal history of other medical treatment Medications: New Fluarix (PF) (flu vac ts (6mos up)-PF) 0.5 mL IM ONCE 0.5 mL 0RF NS Z23 - Encounter for immunization
[2025-10-24 13:05] VITALS: BP 154/63; PULSE 88; RESP 16; TEMP 36.7; O2SAT 99
--- OUTSIDE RECORDS SUMMARY | 2025-10-24 16:23 | XMS_ITS | Clinical Summary ---
Author Organization LL [address] [facility] Address [address] [place] [address] Phone Care Team Providers Care Scheduling Agent Name Role Phone Flaquita Acevedo MD Primary Care Provider [phone] Surgical History Surgery Date Site/Laterality Comments BACK [...] COLONOSCOPY 06/2014 PROCEDURE: HISTORICAL COLONOSCOPY; COMMENT: in [place] CATARACT EXTRACTION PROCEDURE: HISTORICAL CATARACT REMOVAL Medical History Medical History Date Comments Asthma 08/14/2016 DX:Asthma Fibromyalgia 08/14/2016 DX:Fibromyalgia Arteriovenous malformation (AVM) 08/14/2016 DX:Arteriovenous malformation (AVM) Hyperlipidemia 08/14/2016 DX:Hyperlipidemi a GERD (gastroesophageal reflux disease) 08/14/2016 DX:GERD (gastroesophageal reflux disease) Lactose intolerance 08/14/2016 DX:Lactose i ntolerance Anxiety 08/14/2016 DX:Anxiety Chronic obstructive pulmonar y disease (COPD) (CMS/HCC V24, CMS/HCC V28) 08/14/2016 DX:Chronic obstructi ve pulmonary disease (COPD) ([facility]) DDD (degenerative disc disease), lumbar 6 DX:DDD [...] microalbuminuria, without long-term current use of insulin (CMS/HCC V24, CMS/HCC V28) 10/14/2017 DX:Type 2 diabetes mellitus with microalbuminuria, without long-term current use of insulin ([facility]) Microalbuminuria 10/14/2017 DX:Microalbumin uria Hypertension 11/18/2017 DX:Hypertension Microalbuminuria 10/14/2017 DX:Microalbumin uria Family History Medical History Relation Name Comments Colon cancer Aunt 1 Leukemia Aunt 2 Diabetes Father Other: Heart attack Father age 61-[place] Mental illness Mother depression, a sthma, joint [...] on file Sexual Orientation Not on file Plan of Treatment Health Maintenance Due Date [...] Procedure Name Priority Date/Time Associated Diagnosis Comments BASIC METABOLIC PANEL Routine 06/26/2025 10:58 AM EDT Cerebral infarction, unspecified ([facility] V24, [facility] V28) Essential (primary) hypertension Chronic obstructive pulmonary disease, unspecified ([facility] V24, [facility] V28) [facility] DEXA AXIAL SKELETON Routine 04/04/2019 2:45 PM EDT Asymptomatic menopausal state from Last 3 Months or Most Recently Relevant to Health Maintenance Results * (ABNORMAL) Basic metabolic panel (06/26/2025 10:58 AM EDT) Sodium 142 133 - 145 mmol/L LAB CHEMISTRY METHOD 06/26/2025 12:32 PM [facility] Potassium 4.1 3.5 - 5.5 mmol/L LAB CHEMISTRY METHOD 06/26/2025 12:32 PM [facility] Chloride 111(H) 96 - 110 mmol/L LAB CHEMISTRY METHOD 06/26/2025 12:32 PM [facility] CO2 24 21 - 32 mmol/L LAB CHEMISTRY METHOD 06/26/2025 12:32 PM [facility] Anion Gap 7 3 - 11 LAB CHEMISTRY METHOD 06/26/2025 12:32 PM [facility] Glucose 112(H) 70 - 100 mg/dL LAB CHEMISTRY METHOD 06/26/2025 12:32 PM [facility] BUN 14 5 - 25 mg/dL LAB CHEMISTRY METHOD 06/26/2025 12:32 PM [facility] Creatinine 0.66 0.50 - 1.10 mg/dL LAB CHEMISTRY METHOD 06/26/2025 12:32 PM [facility] eGFR 87 >=60 mL/min/1. 73m2 LAB CHEMISTRY METHOD 06/26/2025 12:32 PM EDT [facility] Comment:Calculation based on the Chronic Kidney Disease Epidemiology Collaboration (CKD-EPI) equation refit without adjustment for race. BUN/Creatinine Ratio 21.2 LAB CHEMISTRY METHOD 06/26/2025 12:32 PM EDT [facility] Calcium 9.7 8.5 - 10.5 mg/dL LAB CHEMISTRY METHOD 06/26/2025 12:32 PM EDT [facility] Blood Venous blood specimen / Unknown Venipuncture / Unknown 06/26/2025 10:58 AM EDT 06/26/2025 11:29 AM EDT us Flaquita Acevedo MD LAB BLOOD ORDERABLES Final Resu lt [facility] [address] [place] [address], * NANCY DEXA AXIAL SKELETON (04/04/2019 2:45 PM EDT) Anatomical Region Laterality Modality Mammography 04/04/2019 1:46 PM EDT Narrative 04/04/2019 2:45 PM EDT [facility] Diagnostic Imaging Department [address] [place] [address] Patient: TANIA FIGUEROA./Age/Sex: 1940 - 79 - F Unit#: [id number] Location/Status: SPDIMAM/REG CLI Mnemonic[facility]ing [facility] Ordering Physician: EDGARDO DUNAWAY MD Nancy Dexa [...] probability of hip fracture of 2.3%. Code 69481 Dictating Physician: BRODIE PALACIO MD Electronically Signed by: BRODIE PALACIO MD Dic Date/Time: 04/04/19 1443 Sign date/Time: 04/04/19 1445 Procedure Note Brodie Palacio - 10/27/2022 [facility] Diagnostic Imaging Department [address] [place] [address] [id number] Patient: TANIA FIGUEROA/Age/Sex: 1940 - 79 - F Unit#: [id number] Location/Status: SPDIMAM/REG CLI Mnemonic/[facility]ing [facility] Ordering Physician: EDGARDO DUNAWAY MD Nancy Dexa [...] density of the femurs bilaterally is 1.011 gm/[id number] is 100% of that of young normals [...] probability of hip fracture of 2.3%. Code 67345 Dictating Physician: BRODEI PALACIO MD Electronically Signed by: BRODIE PALACIO MD Dic Date/Time: 04/04/19 1443 Sign date/Time: 04/04/19 1445 Edgardo Dunaway MD IMG BI PROCEDURES Final Result from Last 3 Months or Most Recently Relevant to Health Maintenance Insurance MEDICARE [facility] Care Teams Scheduling Agent Relationship Specialty Start Date End Date Flaquita Acevedo MD [address] [place] [id number] PCP - General Hospitalist Medicine 05/03/25
--- OUTSIDE RECORDS SUMMARY | 2025-10-24 16:23 | XMS_ITS | Encounter Summary ---
Author Organization [facility] Address [address] [place] [address] Care Team Providers Care General Farm Manager Name Role Phone Flaquita Acevedo MD Primary Care Provider [phone] Encounter Details Date Type Department Care Team (Late st Contact Info) Description 05/10/2025 Lab Requisition [facility] - Main Lab [address] [place] [phone] Flaquita Acevedo MD [address] [place] [address] Essential (primary) hypertension Social History Tobacco Use [...] AM EDT) WBC 8.1 4.8 - 10.8 K/[facility] LAB HEMETOLOGY METHOD 05/10/2025 12:52 PM EDT [facility] ([facility] LAB RBC 3.70(L) 3.80 - 4.80 [...] MD LAB BLOOD ORDERABLES Final Resu lt [facility] ([facility]) [facility] LAB [address] [place] [address], [place] [phone] documented in this encounter Visit Diagnoses Diagnosis Essential (primary) hypertension Unspecified essential hypertension documented in this encounter Care Teams General Farm Manager Relationship Specialty Start Date End Date Flaquita Acevedo MD [address] [place] [address] PCP - General Hospitalist Medicine 05/03/25 documented as of this encounter
--- OUTSIDE RECORDS SUMMARY | 2025-10-24 16:23 | XMS_ITS | Encounter Summary ---
Author Organization [facility] Address [address] [place] [address] Care Team Providers Care Roll Former Name Role Phone Flaquita Acevedo MD Primary Care Provider [phone] Encounter Details Date Type Department Care Team (Late st Contact Info) Description 05/03/2025 Lab Requisition [facility] - Main Lab [address] [place] [phone] Flaquita Acevedo MD [address] [place] [address] Anemia, unspecified; Hypokalemia Social History Tobacco Use [...] mmol/L LAB CHEMISTRY METHOD 05/03/2025 10:59 AM [facility] LAB Potassium 3.2(L) 3.5 - 5.5 mmol/L LAB CHEMISTRY METHOD 05/03/2025 10:59 AM [facility] LAB Chloride 107 96 - 110 mmol/L LAB CHEMISTRY METHOD 05/03/2025 10:59 AM [facility] LAB CO2 24 21 - 32 mmol/L LAB CHEMISTRY METHOD 05/03/2025 10:59 AM [facility] LAB Anion Gap 12(H) 3 - 11 LAB CHEMISTRY METHOD 05/03/2025 10:59 AM [facility] LAB Glucose 116(H) 70 - 100 mg/dL LAB CHEMISTRY METHOD 05/03/2025 10:59 AM [facility] LAB BUN 11 5 - 25 mg/dL LAB CHEMISTRY METHOD 05/03/2025 10:59 AM [facility] LAB Creatinine 0.60 0.50 - 1.10 mg/dL LAB CHEMISTRY METHOD 05/03/2025 10:59 AM [facility] LAB eGFR 89 >=60 mL/min/1. 73m2 LAB CHEMISTRY METHOD 05/03/2025 10:59 AM [facility] LAB Comment:Calculation based on the Chronic Kidney Disease Epidemiology Collaboration (CKD-EPI) equation refit without adjustment for race. BUN/Creatinine Ratio 18.3 LAB CHEMISTRY METHOD 05/03/2025 10:59 AM [facility] LAB Calcium 8.6 8.5 - 10.5 mg/dL LAB CHEMISTRY METHOD 05/03/2025 10:59 AM [facility] LAB Blood Venous blood specimen / Unknown Venipuncture / Unknown 05/03/2025 5:19 AM EDT 05/03/2025 8:51 AM EDT us Flaquita Acevedo MD LAB BLOOD ORDERABLES Final Resu lt [facility] LAB [address] [place] [address], * (ABNORMAL) Complete blood count (05/03/2025 5:19 AM EDT) [facility] Signature WBC 6.3 4.8 - 10.8 K/mcL LAB HEMETOLOGY METHOD 05/03/2025 10:26 AM EDT [facility] LAB RBC 3.50(L) 3.80 - 4.80 M/mcL LAB HEMETOLOGY METHOD 05/03/2025 10:26 AM EDT [facility] LAB Hemoglobin 11.6 11.5 - 16.0 g/dL LAB HEMETOLOGY METHOD 05/03/2025 10:26 AM [facility] LAB Hematocrit 34.7(L) 35.0 - 47.0 % LAB [facility]EMETOLOGY [facility] MCV 98.9(H) 79.0 - 98.0 FL LAB HEMETOLOGY METHOD 05/03/2025 10:26 AM EDT [facility] LAB MCH 33.0(H) 27.0 - 32.0 pcg LAB HEMETOLOGY METHOD [facility] MCHC 33.4 32.0 - 37.0 g/dL LAB HEMETOLOGY METHOD 05/03/2025 10:26 AM EDT [facility] LAB RDW 13.1 11.0 - 15.0 % LAB HEMETOLOGY METHOD 05/03/2025 10:26 AM EDT [facility] LAB Platelets 342 130 - 400 K/mcL LAB HEMETOLOGY METHOD [facility]/03[facility] MPV 10.1 7.0 - 11.0 FL LAB HEMETOLOGY METHOD 05/03/2025 10:26 AM EDT [facility] LAB NRBC 0.0 <1.0 % LAB HEMETOLOGY METHOD 05/03/2025 10:26 AM EDT [facility] LAB NRBC Absolute 0.00 <0.10 K/mcL LAB HEMETOLOGY METHOD 05/03/2025 10:26 AM EDT [facility] LAB Blood Venous blood specimen / Unknown Venipuncture / Unknown 05/03/2025 5:19 AM EDT 05/03/2025 8:51 AM EDT us Flaquita Acevedo MD LAB BLOOD ORDERABLES Final Resu lt [facility] [address] [place] [address], [place] [phone] documented in this encounter Visit Diagnoses Diagnosis Anemia, unspecified Hypokalemia Hypopotassemia documented in this encounter Care Teams Roll Former Relationship Specialty Start Date End Date Flaquita Acevedo MD [address] [place] [address] PCP - General Hospitalist Medicine 05/03/25 documented as of this encounter
--- OUTSIDE RECORDS SUMMARY | 2025-10-24 16:25 | XMS_ITS | Encounter Summary ---
Author Organization [facility] Address [address] [place] [address] Care Team Providers Care Photograph Finisher Name Role Phone Flaquita Acevedo MD Primary Care Provider [phone] Encounter Details Date Type Department Care Team (Late st Contact Info) Description 06/26/2025 Lab Requisition [facility] - Main Lab [address] [facility] [place] [address] Flaquita Acevedo MD [address] [place] [address] Cerebral infarction, unspecified (CMS/HCC V24, CMS/HCC V28); [...] 06/26/2025 10:58 AM EDT Cerebral infarction, unspecified ([facility] V24, [facility] V28) Essential (primary) hypertension Chronic obstructive pulmonary disease, unspecified ([facility] V24, [facility] V28) documented in this encounter Results * (ABNORMAL) Basic metabolic panel (06/26/2025 10:58 AM EDT) Sodium 142 133 - 145 mmol/L LAB CHEMISTRY METHOD 06/26/2025 12:32 PM [facility] LAB Potassium 4.1 3.5 - 5.5 mmol/L LAB CHEMISTRY METHOD 06/26/2025 12:32 PM [facility] LAB Chloride 111(H) 96 - 110 mmol/L LAB CHEMISTRY METHOD 06/26/2025 12:32 PM [facility] LAB CO2 24 21 - 32 mmol/L LAB CHEMISTRY METHOD 06/26/2025 12:32 PM [facility] LAB Anion Gap 7 3 - 11 LAB CHEMISTRY METHOD 06/26/2025 12:32 PM [facility] LAB Glucose 112(H) 70 - 100 mg/dL LAB CHEMISTRY METHOD 06/26/2025 12:32 PM [facility] LAB BUN 14 5 - 25 mg/dL LAB CHEMISTRY METHOD 06/26/2025 12:32 PM [facility] LAB Creatinine 0.66 0.50 - 1.10 mg/dL LAB CHEMISTRY METHOD 06/26/2025 12:32 PM [facility] LAB eGFR 87 >=60 mL/min/1. 73m2 LAB CHEMISTRY METHOD 06/26/2025 12:32 PM [facility] LAB Comment:Calculation based on the Chronic Kidney Disease Epidemiology Collaboration (CKD-EPI) equation refit without adjustment for race. BUN/Creatinine Ratio 21.2 LAB CHEMISTRY METHOD 06/26/2025 12:32 PM [facility] LAB Calcium 9.7 8.5 - 10.5 mg/dL LAB CHEMISTRY METHOD 06/26/2025 12:[address] [facility] LAB Blood Venous blood specimen / Unknown Venipuncture / Unknown 06/26/2025 10:58 AM EDT 06/26/2025 11:29 AM EDT us Flaquita Acevedo MD LAB BLOOD ORDERABLES Final Resu lt [facility] [address] [place] [address], [place] [phone] * (ABNORMAL) Complete blood count (06/26/2025 10:58 AM EDT) WBC 13.4(H) 4.8 - 10.8 K/mcL LAB HEMETOLOGY METHOD 06/26/2025 11:[address] [facility] RBC 3.60(L) 3.80 - 4.80 M/[facility] LAB HEMETOLOGY METHOD 06/26/2025 11:[address] [facility] Hemoglobin 12.3 11.5 - 16.0 g/dL LAB HEMETOLOGY METHOD 06/26/2025 11:[address] [facility] LAB Hematocrit 39.0 35.0 - 47.0 % LAB HEMETOLOGY METHOD 06/26/2025 11:[address] [facility] MCV 108.9(H) 79.0 - 98.0 FL LAB HEMETOLOGY METHOD 06/26/2025 11:[address] [facility] MCH 34.4(H) 27.0 - 32.0 pcg LAB HEMETOLOGY METHOD 06/26/2025 11:36 AM [facility] LAB MCHC 31.5(L) 32.0 - 37.0 g/dL LAB HEMETOLOGY METHOD 06/26/2025 11:[address] [facility] RDW 15.7(H) 11.0 - 15.0 % LAB HEMETOLOGY METHOD 06/26/2025 11:[address] [facility] Platelets 356 130 - 400 K/mcL LAB HEMETOLOGY METHOD 06/26/2025 11:[address] [facility] MPV 11.2(H) 7.0 - 11.0 FL LAB HEMETOLOGY METHOD 06/26/2025 11:[address] [facility] NRBC 0.0 <1.0 % LAB HEMETOLOGY METHOD 06/26/2025 11:[address] [facility] NRBC Absolute 0.00 <0.10 K/mcL LAB HEMETOLOGY METHOD 06/26/2025 11:[address] [facility] Blood Venous blood specimen / Unknown Venipuncture / Unknown 06/26/2025 10:58 AM EDT 06/26/2025 11:29 AM EDT us Flaquita Acevedo MD LAB BLOOD ORDERABLES Final Resu lt [facility] [address] [place] [address], documented in this encounter Visit Diagnoses Diagnosis Cerebral infarction, unspecified (CMS/HCC V24, CMS/HCC V28) Essential (primary) hypertension Unspecified essential hypertension Chronic obstructive pulmonary disease, unspecified (CMS/HCC V24, CMS/HCC V28) documented in this encounter Care Teams Photograph Finisher Relationship Specialty Start Date End Date Flaquita Acevedo MD [address] [place] [id number] PCP - General Hospitalist Medicine 05/03/25 documented as of this encounter
--- OUTSIDE RECORDS SUMMARY | 2025-10-24 16:25 | XMS_ITS | Encounter Summary ---
Author Organization [facility] Address [address] [place] [address] Care Team Providers Care Information Officer Name Role Phone Flaquita Acevedo MD Primary Care Provider [phone] Encounter Details Date Type Department Care Team (Late st Contact Info) Description 06/08/[address] [facility] - Main Lab [address] [facility] [place] [address] Flaquita Acevedo MD [address] [place] [address] Cerebral infarction, unspecified (CMS/HCC V24, CMS/HCC V28); [...] 06/08/2025 4:55 AM EDT Cerebral infarction, unspecified ([facility]/HCC V24, [facility] V28) Essential (primary) hypertension Hyperlipidemia, unspecified documented in this encounter Results * (ABNORMAL) CBC auto differential (06/08/2025 4:55 AM EDT) Pathologist [facility] WBC 12.0(H) 4.8 - 10.8 K/mcL LAB HEMETOLOGY METHOD 06/08/2025 9:44 AM [facility] LAB RBC 2.00(L) 3.80 - 4.80 M/mcL LAB HEMETOLOGY METHOD 06/08/2025 9:44 AM [facility] LAB Hemoglobin 7.1(L) 11.5 - 16.0 g/dL LAB HEMETOLOGY METHOD 06/08/2025 9:44 AM [facility] LAB Hematocrit 22.9(L) 35.0 - 47.0 % LAB HEMETOLOGY METHOD 06/08/2025 9:44 AM [facility] LAB MCV 114.5(H) 79.0 - 98.0 FL LAB HEMETOLOGY METHOD 06/08/2025 9:44 AM [facility] LAB MCH 35.5(H) 27.0 - 32.0 pcg LAB HEMETOLOGY METHOD 06/08/2025 9:44 AM [facility] LAB MCHC 31.0(L) 32.0 - 37.0 g/dL LAB HEMETOLOGY METHOD 06/08/2025 9:44 AM [facility] LAB RDW 18.9(H) 11.0 - 15.0 % LAB HEMETOLOGY METHOD 06/08/2025 9:44 AM [facility] LAB Platelets 400 130 - 400 K/mcL LAB HEMETOLOGY METHOD 06/08/2025 9:44 AM [facility] LAB MPV 11.2(H) 7.0 - 11.0 FL LAB HEMETOLOGY METHOD 06/08/2025 9:44 AM [facility] LAB NRBC 0.5 <1.0 % LAB HEMETOLOGY METHOD 06/08/2025 9:44 AM [facility] LAB NRBC Absolute 0.06 <0.10 K/mcL LAB HEMETOLOGY METHOD 06/08/2025 9:44 AM [facility] LAB Neutrophils Relative 68.5 % LAB HEMETOLOGY METHOD 06/08/2025 9:44 AM [facility] Lymphocytes Relative 19.9 % LAB HEMETOLOGY METHOD 06/08/2025 9:44 AM [facility] Monocytes Relative 9.5 % LAB HEMETOLOGY METHOD 06/08/2025 9:44 AM [facility] Eosinophils Relative 1.1 % LAB HEMETOLOGY METHOD 06/08/2025 9:44 AM [facility] Basophils Relative 0.3 % LAB HEMETOLOGY METHOD 06/08/2025 9:44 AM [facility] LAB Immature Granulocytes Relative 0.7 % LAB HEMETOLOGY METHOD 06/08/2025 9:44 AM [facility] LAB Neutrophils Absolute 8.18(H) 1.50 - 7.00 K/mcL LAB HEMETOLOGY METHOD 06/08/2025 9:44 AM [facility] Lymphocytes Absolute 2.38 1.00 - 5.00 K/mcL LAB HEMETOLOGY METHOD 06/08/2025 9:44 AM [facility] Monocytes Absolute 1.14(H) 0.20 - 1.00 K/mcL LAB HEMETOLOGY METHOD 06/08/2025 9:44 AM [facility] LAB Eosinophils Absolute 0.13 0.00 - 0.50 K/mcL LAB HEMETOLOGY METHOD 06/08/2025 9:44 AM EDT [facility] Basophils Absolute 0.04 0.00 - 0.20 K/[facility] 06/08/2025 9:44 AM EDT [facility] Immature Granulocytes Absolute 0.08(H) 0.00 - 0.03 K/[facility] 06/08/2025 9:44 AM EDT [facility] LAB Blood Venous blood specimen / Unknown Venipuncture / Unknown 06/08/2025 4:55 AM EDT 06/08/2025 8:32 AM EDT us Flaquita Acevedo MD LAB BLOOD ORDERABLES Final Resu lt [facility] [address] [place] [address], * (ABNORMAL) Basic metabolic panel (06/08/2025 4:55 AM EDT) Sodium 144 133 - 145 mmol/L LAB CHEMISTRY METHOD 06/08/2025 9:36 AM [facility] Potassium 4.2 3.5 - 5.5 mmol/L LAB CHEMISTRY METHOD 06/08/2025 9:36 AM [facility] Chloride 113(H) 96 - 110 mmol/L LAB CHEMISTRY METHOD 06/08/2025 9:36 AM [facility] CO2 25 21 - 32 mmol/L LAB CHEMISTRY METHOD 06/08/2025 9:36 AM [facility] Anion Gap 6 3 - 11 LAB CHEMISTRY METHOD 06/08/2025 9:36 AM [facility] Glucose 94 70 - 100 mg/dL LAB CHEMISTRY METHOD 06/08/2025 9:36 AM [facility] BUN 31(H) 5 - 25 mg/dL LAB CHEMISTRY METHOD 06/08/2025 9:36 AM EDT [facility] Creatinine 0.86 0.50 - 1.10 mg/dL LAB CHEMISTRY METHOD 06/08/2025 9:36 AM EDT [facility] LAB eGFR 67 >=60 mL/min/1. 73m2 LAB CHEMISTRY METHOD 06/08/2025 9:36 AM EDT [facility] Comment:Calculation based on the Chronic Kidney Disease Epidemiology Collaboration (CKD-EPI) equation refit without adjustment for race. BUN/Creatinine Ratio 36.0 LAB CHEMISTRY METHOD 06/08/2025 9:36 AM T [facility] Calcium 8.7 8.5 - 10.5 mg/dL LAB CHEMISTRY METHOD 06/08/2025 9:36 AM EDT [facility] Blood Venous blood specimen / Unknown Venipuncture / Unknown 06/08/2025 4:55 AM EDT 06/08/2025 8:32 AM EDT us Flaquita Acevedo MD LAB BLOOD ORDERABLES Final Resu lt [facility] [address] [place] [address], documented in this encounter Visit Diagnoses Diagnosis Cerebral infarction, unspecified (CMS/HCC V24, CMS/HCC V28) Essential (primary) hypertension Unspecified essential hypertension Hyperlipidemia, unspecified documented in this encounter Care Teams Information Officer Relationship Specialty Start Date End Date Flaquita Acevedo MD [address] [place] [phone] PCP - General Hospitalist Medicine 05/03/25 documented as of this encounter
--- OUTSIDE RECORDS SUMMARY | 2025-10-24 16:25 | XMS_ITS | Encounter Summary ---
Author Organization [facility] Address [address] [place] [address] Care Team Providers Care Mixer Runner Name Role Phone Flaquita Acevedo MD Primary Care Provider [phone] Encounter Details Date Type Department Care Team (Latest Contact Info) Description 05/18/[address] [facility] - Main Lab [address] [facility] [place] [address] Flaquita Acevedo MD [address] [place] [phone] Chronic obstructive pulmonary disease, unspecified (CMS/HCC V24, [...] CBC auto differential (05/18/2025 7:20 AM EDT) [facility] WBC 10.4 4.8 - 10.8 K/mcL LAB HEMETOLOGY METHOD 05/18/2025 9:12 AM EDT [facility] RBC 3.70(L) 3.80 - 4.80 M/mcL LAB HEMETOLOGY METHOD 05/18/2025 9:12 AM T [facility] Hemoglobin 12.3 11.5 - 16.0 g/dL LAB HEMETOLOGY METHOD 05/18/2025 9:12 AM [facility] LAB Hematocrit 36.0 35.0 - 47.0 % LAB HEMETOLOGY METHOD 05/18/2025 9:12 AM [facility] LAB MCV 97.6 79.0 - 98.0 FL LAB HEMETOLOGY METHOD 05/18/2025 9:12 AM [facility] LAB MCH 33.3(H) 27.0 - 32.0 pcg LAB HEMETOLOGY METHOD 05/18/2025 9:12 AM [facility] LAB MCHC 34.2 32.0 - 37.0 g/dL LAB HEMETOLOGY METHOD 05/18/2025 9:12 AM [facility] LAB RDW 13.4 11.0 - 15.0 % LAB HEMETOLOGY METHOD 05/18/2025 9:12 AM [facility] LAB Platelets 331 130 - 400 K/mcL LAB HEMETOLOGY METHOD 05/18/2025 9:12 AM [facility] MPV 11.1(H) 7.0 - 11.0 FL LAB HEMETOLOGY METHOD 05/18/2025 9:12 AM [facility] NRBC 0.0 <1.0 % LAB HEMETOLOGY METHOD 05/18/2025 9:12 AM [facility] NRBC Absolute 0.00 <0.10 K/mcL LAB HEMETOLOGY METHOD 05/18/2025 9:12 AM [facility] Neutrophils Relative 72.1 % LAB HEMETOLOGY METHOD 05/18/2025 9:12 AM [facility] Lymphocytes Relative 14.9 % LAB HEMETOLOGY METHOD 05/18/2025 9:12 AM [facility] Monocytes Relative 10.7 % LAB HEMETOLOGY METHOD 05/18/2025 9:12 AM [facility] Eosinophils Relative 1.2 % LAB HEMETOLOGY METHOD 05/18/2025 9:12 AM [facility] Basophils Relative 0.7 % LAB HEMETOLOGY METHOD 05/18/2025 9:12 AM EDT [facility] Immature Granulocytes Relative 0.4 % LAB HEMETOLOGY METHOD 05/18/2025 9:12 AM EDT [facility] Neutrophils Absolute 7.48(H) 1.50 - 7.00 K/mcL LAB HEMETOLOGY METHOD 05/18/2025 9:12 AM EDT [facility] Lymphocytes Absolute 1.54 1.00 - 5.00 K/mcL LAB HEMETOLOGY METHOD 05/18/2025 9:12 AM EDT [facility] Monocytes Absolute 1.11(H) 0.20 - 1.00 K/mcL LAB HEMETOLOGY METHOD 05/18/2025 9:12 AM EDT [facility] Eosinophils Absolute 0.12 0.00 - 0.50 K/mcL LAB HEMETOLOGY METHOD 05/18/2025 9:12 AM EDT [facility] Basophils Absolute 0.07 0.00 - 0.20 K/mcL LAB HEMETOLOGY METHOD 05/18/2025 9:12 AM EDT [facility] Immature Granulocytes Absolute 0.04(H) 0.00 - 0.03 K/mcL LAB HEMETOLOGY METHOD 05/18/2025 9:12 AM [facility] Blood Venous blood specimen / Unknown Venipuncture / Unknown 05/18/2025 7:20 AM EDT 05/18/2025 8:05 AM EDT us Flaquita Acevedo MD LAB BLOOD ORDERABLES Final Resu lt [facility] [address] [place] [address], * Ammonia (05/18/2025 7:20 AM EDT) Ammonia 18 11 - 35 mcmol/L LAB CHEMISTRY METHOD 05/18/2025 8:38 AM [facility] Blood Venous blood specimen / Unknown Venipuncture / Unknown 05/18/2025 7:20 AM EDT 05/18/2025 8:05 AM EDT us Flaquita Acevedo MD LAB BLOOD ORDERABLES Final Resu lt [facility] [address] [place] [address], * (ABNORMAL) Comprehensive metabolic panel (05/18/2025 7:20 AM EDT) Sodium 140 133 - 145 mmol/L LAB CHEMISTRY METHOD 05/18/2025 9:38 AM [facility] Potassium 3.8 3.5 - 5.5 mmol/L LAB CHEMISTRY METHOD 05/18/2025 9:38 AM [facility] Chloride 109 96 - 110 mmol/L LAB CHEMISTRY METHOD 05/18/2025 9:38 AM [facility] CO2 23 21 - 32 mmol/L LAB CHEMISTRY METHOD 05/18/2025 9:38 AM [facility] Anion Gap 8 3 - 11 LAB CHEMISTRY METHOD 05/18/2025 9:38 AM [facility] Glucose 128(H) 70 - 100 mg/dL LAB CHEMISTRY METHOD 05/18/2025 9:38 AM [facility] BUN 21 5 - 25 mg/dL LAB CHEMISTRY METHOD 05/18/2025 9:38 AM [facility] Creatinine 0.66 0.50 - 1.10 mg/dL LAB CHEMISTRY METHOD 05/18/2025 9:38 AM [facility] eGFR 87 >=60 mL/min/1. 73m2 LAB CHEMISTRY METHOD 05/18/2025 9:38 AM [facility] Comment:Calculation based on the Chronic Kidney Disease Epidemiology Collaboration (CKD-EPI) equation refit without adjustment for race. BUN/Creatinine Ratio 31.8 LAB CHEMISTRY METHOD 05/18/2025 9:38 AM T [facility] Calcium 9.9 8.5 - 10.5 mg/dL LAB CHEMISTRY METHOD 05/18/2025 9:38 AM [facility] AST (SGOT) 21 10 - 42 unit/L LAB CHEMISTRY METHOD 05/18/2025 9:38 AM [facility] ALT (SGPT) 20 10 - 60 unit/L LAB CHEMISTRY METHOD 05/18/2025 9:38 AM [facility] Alkaline Phosphatase 194(H) 42 - 121 unit/L LAB CHEMISTRY METHOD 05/18/2025 9:38 AM [facility] Total Protein 6.6 6.0 - 8.0 g/dL LAB CHEMISTRY METHOD 05/18/2025 9:38 AM [facility] Albumin 3.6 3.2 - 5.0 g/dL LAB CHEMISTRY METHOD 05/18/2025 9:38 AM [facility] Total Bilirubin 1.7(H) 0.0 - 1.4 mg/dL LAB CHEMISTRY METHOD 05/18/2025 9:38 AM [facility] Blood Venous blood specimen / Unknown Venipuncture / Unknown 05/18/2025 7:20 AM EDT 05/18/2025 8:05 AM EDT us Flaquita Acevedo MD LAB BLOOD ORDERABLES Final Resu lt [facility] [address] [place] [address], [place] [phone] documented in this encounter Visit Diagnoses Diagnosis Chronic obstructive pulmonary disease, unspecified ([facility] V24, [facility] V28) Type 2 diabetes mellitus without complications ([facility] V24, [facility] V28) Dizziness and giddiness Cerebral infarction, unspecified ([facility] V24, [facility] V28) documented in this encounter Care Teams Mixer Runner Relationship Specialty Start Date End Date Flaquita Acevedo MD [address] [place] [id number] PCP - General Hospitalist Medicine 05/03/25 documented as of this encounter
--- OUTSIDE RECORDS SUMMARY | 2025-10-24 16:25 | XMS_ITS | Encounter Summary ---
Author Organization [facility] Address [address] [place] [address] Care Team Providers Care Soft Work Cigar Machine Operator Name Role Phone Flaquita Acevedo MD Primary Care Provider Encounter Details Date Type Department Care Team (Latest Contact Info) Description 05/25/2025 Lab Requisition [facility] - Main Lab [address] [facility] [place] [address] Flaquita Acevedo MD [address] [place] [phone] Cerebral infarction, unspecified (CMS/HCC V24, CMS/HCC V28); [...] CBC auto differential (05/25/2025 5:35 AM EDT) [facility] WBC 8.5 4.8 - 10.8 K/mcL LAB HEMETOLOGY METHOD 05/25/2025 10:27 AM [facility] LAB RBC 3.40(L) 3.80 - 4.80 M/mcL LAB HEMETOLOGY METHOD 05/25/2025 10:27 AM [facility] LAB Hemoglobin 11.4(L) 11.5 - 16.0 g/dL LAB HEMETOLOGY METHOD 05/25/2025 10:27 AM [facility] LAB Hematocrit 32.9(L) 35.0 - 47.0 % LAB HEMETOLOGY METHOD 05/25/2025 10:27 AM [facility] LAB MCV 97.9 79.0 - 98.0 FL LAB HEMETOLOGY METHOD 05/25/2025 10:27 AM [facility] LAB MCH 33.9(H) 27.0 - 32.0 pcg LAB HEMETOLOGY METHOD 05/25/2025 10:27 AM [facility] LAB MCHC 34.7 32.0 - 37.0 g/dL LAB HEMETOLOGY METHOD 05/25/2025 10:27 AM [facility] LAB RDW 13.2 11.0 - 15.0 % LAB HEMETOLOGY METHOD 05/25/2025 10:27 AM [facility] LAB Platelets 312 130 - 400 K/mcL LAB HEMETOLOGY METHOD 05/25/2025 10:27 AM [facility] LAB MPV 10.7 7.0 - 11.0 FL LAB HEMETOLOGY METHOD 05/25/2025 10:27 AM [facility] LAB NRBC 0.0 <1.0 % LAB HEMETOLOGY METHOD 05/25/2025 10:27 AM [facility] LAB NRBC Absolute 0.00 <0.10 K/mcL LAB HEMETOLOGY METHOD 05/25/2025 10:27 AM [facility] Neutrophils Relative 72.1 % LAB HEMETOLOGY METHOD 05/25/2025 10:27 AM [facility] Lymphocytes Relative 15.9 % LAB HEMETOLOGY METHOD 05/25/2025 10:27 AM [facility] Monocytes Relative 9.2 % LAB HEMETOLOGY METHOD 05/25/2025 10:27 AM [facility] Eosinophils Relative 1.6 % LAB HEMETOLOGY METHOD 05/25/2025 10:27 AM [facility] Basophils Relative 0.7 % LAB HEMETOLOGY METHOD 05/25/2025 10:27 AM [facility] Immature Granulocytes Relative 0.5 % LAB HEMETOLOGY METHOD 05/25/2025 10:27 AM [facility] Neutrophils Absolute 6.14 1.50 - 7.00 K/mcL LAB HEMETOLOGY METHOD 05/25/2025 10:[address] [facility] Lymphocytes Absolute 1.35 1.00 - 5.00 K/mcL LAB HEMETOLOGY METHOD 05/25/2025 10:[address] [facility] Monocytes Absolute 0.78 0.20 - 1.00 K/[facility] LAB HEMETOLOGY METHOD 05/25/2025 10:[address] [facility] Eosinophils Absolute 0.14 0.00 - 0.50 K/[facility] LAB HEMETOLOGY METHOD 05/25/2025 10:[address] [facility] Basophils Absolute 0.06 0.00 - 0.20 K/[facility] LAB HEMETOLOGY METHOD 05/25/2025 10:[address] [facility] Immature Granulocytes Absolute 0.04(H) 0.00 - 0.03 K/[facility] LAB HEMETOLOGY METHOD 05/25/2025 10:[address] [facility] Blood Venous blood specimen / Unknown Venipuncture / Unknown 05/25/2025 5:35 AM EDT 05/25/2025 9:55 AM EDT us Flaquita Acevedo MD LAB BLOOD ORDERABLES Final Resu lt [facility] [address] [place] [address], * (ABNORMAL) Basic metabolic panel (05/25/2025 5:35 AM EDT) Sodium 141 133 - 145 mmol/L LAB CHEMISTRY METHOD 05/25/2025 10:[address] [facility] Potassium 3.1(L) 3.5 - 5.5 mmol/L LAB CHEMISTRY METHOD 05/25/2025 10:[address] [facility] Chloride 105 96 - 110 mmol/L LAB CHEMISTRY METHOD 05/25/2025 10:[address] [facility] CO2 27 21 - 32 mmol/L LAB CHEMISTRY METHOD 05/25/2025 10:[address] [facility] Anion Gap 9 3 - 11 LAB CHEMISTRY METHOD 05/25/2025 10:40 AM [facility] Glucose 86 70 - 100 mg/dL LAB CHEMISTRY METHOD 05/25/2025 10:40 AM [facility] BUN 18 5 - 25 mg/dL LAB CHEMISTRY METHOD 05/25/2025 10:[address] [facility] Creatinine 0.59 0.50 - 1.10 mg/dL LAB CHEMISTRY METHOD 05/25/2025 10:40 AM [facility] LAB eGFR 90 >=60 mL/min/1. 73m2 LAB CHEMISTRY METHOD 05/25/2025 10:40 AM [facility] Comment:Calculation based on the Chronic Kidney Disease Epidemiology Collaboration (CKD-EPI) equation refit without adjustment for race. BUN/Creatinine Ratio 30.5 LAB CHEMISTRY METHOD 05/25/2025 10:40 AM [facility] Calcium 9.4 8.5 - 10.5 mg/dL LAB CHEMISTRY METHOD 05/25/2025 10:40 AM [facility] Blood Venous blood specimen / Unknown Venipuncture / Unknown 05/25/2025 5:35 AM EDT 05/25/2025 9:55 AM EDT us Flaquita Acevedo MD LAB BLOOD ORDERABLES Final Resu lt [facility] [address] [place] [address], documented in this encounter Visit Diagnoses Diagnosis Cerebral infarction, unspecified ([facility] V24, [facility] V28) Essential (primary) hypertension Unspecified essential hypertension Chronic obstructive pulmonary disease, unspecified ([facility] V24, [facility] V28) Type 2 diabetes mellitus without complications ([facility] V24, [facility] V28) documented in this encounter 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
--- OUTSIDE RECORDS SUMMARY | 2025-10-24 16:25 | XMS_ITS | Encounter Summary ---
Author Organization [facility] Address [address] [place] [address] Care Team Providers Care Electric Motor Tester Assembler Name Role Phone Flaquita Acevedo MD Primary Care Provider [phone] Encounter Details Date Type Department Care Team (Latest Contact Info) Description 05/15/2025 Lab Requisition [facility] - Main Lab [address] [facility] [place] [address] Flaquita Acevedo MD [address] [place] [phone] Type 2 diabetes mellitus without complications (CMS/HCC [...] mmol/L LAB CHEMISTRY METHOD 05/15/2025 9:01 AM [facility] Potassium 3.6 3.5 - 5.5 mmol/L LAB CHEMISTRY METHOD 05/15/2025 9:01 AM [facility] Chloride 107 96 - 110 mmol/L LAB CHEMISTRY METHOD 05/15/2025 9:01 AM [facility] CO2 27 21 - 32 mmol/L LAB CHEMISTRY METHOD 05/15/2025 9:01 AM [facility] LAB Anion Gap 7 3 - 11 LAB CHEMISTRY METHOD 05/15/2025 9:01 AM [facility] Glucose 105(H) 70 - 100 mg/dL LAB CHEMISTRY METHOD 05/15/2025 9:01 AM [facility] BUN 23 5 - 25 mg/dL LAB CHEMISTRY METHOD 05/15/2025 9:01 AM [facility] Creatinine 0.79 0.50 - 1.10 mg/dL LAB CHEMISTRY METHOD 05/15/2025 9:01 AM [facility] LAB eGFR 74 >=60 mL/min/1. 73m2 LAB CHEMISTRY METHOD 05/15/2025 9:01 AM [facility] LAB Comment:Calculation based on the Chronic Kidney Disease Epidemiology Collaboration (CKD-EPI) equation refit without adjustment for race. BUN/Creatinine Ratio 29.1 LAB CHEMISTRY METHOD 05/15/2025 9:01 AM [facility] Calcium 9.7 8.5 - 10.5 mg/dL LAB CHEMISTRY METHOD 05/15/2025 9:01 AM [facility] LAB Blood Venous blood specimen / Unknown Venipuncture / Unknown 05/15/2025 5:35 AM EDT 05/15/2025 8:05 AM EDT us Flaquita Acevedo MD LAB BLOOD ORDERABLES Final Resu lt [facility] [address] [place] [address], * (ABNORMAL) Complete blood count (05/15/2025 5:35 AM EDT) Pathologist [facility] WBC 8.0 4.8 - 10.8 K/mcL LAB HEMETOLOGY METHOD 05/15/2025 8:39 AM EDT [facility] RBC 3.50(L) 3.80 - 4.80 M/mcL LAB HEMETOLOGY METHOD 05/15/2025 8:39 AM EDT [facility] Hemoglobin 11.8 11.5 - 16.0 g/dL LAB HEMETOLOGY METHOD 05/15/2025 8:39 AM EDT [facility] LAB Hematocrit 35.1 35.0 - 47.0 % LAB HEMETOLOGY METHOD 05/15/2025 8:39 AM EDT [facility] MCV 100.0(H) 79.0 - 98.0 FL LAB HEMETOLOGY METHOD 05/15/2025 8:39 AM EDT [facility] MCH 33.6(H) 27.0 - 32.0 pcg LAB HEMETOLOGY METHOD 05/15/2025 8:39 AM EDT [facility] MCHC 33.6 32.0 - 37.0 g/dL LAB HEMETOLOGY METHOD 05/15/2025 8:39 AM EDT [facility] RDW 13.3 11.0 - 15.0 % LAB HEMETOLOGY METHOD 05/15/2025 8:39 AM EDT [facility] Platelets 328 130 - 400 K/mcL LAB HEMETOLOGY METHOD 05/15/2025 8:39 AM EDT [facility] MPV 10.8 7.0 - 11.0 FL LAB HEMETOLOGY METHOD 05/15/2025 8:39 AM EDT [facility] NRBC 0.0 <1.0 % [facility] 05/15/2025 8:39 AM EDT [facility] NRBC Absolute 0.00 <0.10 K/mcL LAB HEMETOLOGY METHOD 05/15/2025 8:39 AM EDT [facility] Blood Venous blood specimen / Unknown Venipuncture / Unknown 05/15/2025 5:35 AM EDT 05/15/2025 8:05 AM EDT us Flaquita Acevedo MD LAB BLOOD ORDERABLES Final Resu lt [facility] [address] [place] [address], documented in this encounter Visit Diagnoses Diagnosis Type 2 diabetes mellitus without complications (CMS/HCC V24, CMS/HCC V28) Essential (primary) hypertension Unspecified essential hypertension Hyperlipidemia, unspecified documented in this encounter Care Teams Electric Motor Tester Assembler Relationship Specialty Start Date End Date Flaquita Acevedo MD [address] [place] [phone] PCP - General Hospitalist Medicine 05/03/25 documented as of this encounter
== END 2025-10-24 13:36 | disposition home or self-care (01) ==
LOC: HO.HMCFMS 12:31
PROVIDERS: PCP Student in an Organized Health Care Education/Training Program; Visit Provider Student in an Organized Health Care Education/Training Program
DX: D50.9 Iron deficiency anemia, unspecified (principal); E11.9 Type 2 diabetes mellitus without complications; F41.9 Anxiety disorder, unspecified; F32.A Depression, unspecified; K59.00 Constipation, unspecified; J45.40 Moderate persistent asthma, uncomplicated; L85.3 Xerosis cutis; Z99.3 Dependence on wheelchair; I10 Essential (primary) hypertension; R10.9 Unspecified abdominal pain; K58.9 Irritable bowel syndrome, unspecified; R74.8 Abnormal levels of other serum enzymes; Z86.73 Personal history of transient ischemic attack (TIA), and cerebral infarction without residual deficits; F01.50 Vascular dementia, unspecified severity, without behavioral disturbance, psychotic disturbance, mood disturbance, and anxiety

== ENCOUNTER → 2025-10-24 12:31 | Outpatient (BNVA) | payer MEDICARE, SELFPAY | PROVIDERS: PCP Student in an Organized Health Care Education/Training Program; Visit Provider Student in an Organized Health Care Education/Training Program | DX: D50.9 Iron deficiency anemia, unspecified (principal); E11.9 Type 2 diabetes mellitus without complications; F41.9 Anxiety disorder, unspecified; F32.A Depression, unspecified; K59.00 Constipation, unspecified; J45.40 Moderate persistent asthma, uncomplicated; L85.3 Xerosis cutis; I10 Essential (primary) hypertension; R10.9 Unspecified abdominal pain; K58.1 Irritable bowel syndrome with constipation; R74.8 Abnormal levels of other serum enzymes; F01.50 Vascular dementia, unspecified severity, without behavioral disturbance, psychotic disturbance, mood disturbance, and anxiety; Z86.73 Personal history of transient ischemic attack (TIA), and cerebral infarction without residual deficits; Z99.3 Dependence on wheelchair; Z13.31 Encounter for screening for depression; Z13.39 Encounter for screening examination for other mental health and behavioral disorders | CPT/HCPCS: 96127; 99212 ==

== ENCOUNTER → 2025-11-06 10:30 | Outpatient (BNVA) | payer MEDICARE, SELFPAY | PROVIDERS: PCP Student in an Organized Health Care Education/Training Program | DX: Z71.3 Dietary counseling and surveillance (principal); I69.920 Aphasia following unspecified cerebrovascular disease; I10 Essential (primary) hypertension; D50.9 Iron deficiency anemia, unspecified; E54 Ascorbic acid deficiency; L85.3 Xerosis cutis; L60.3 Nail dystrophy; E11.9 Type 2 diabetes mellitus without complications; Z73.6 Limitation of activities due to disability; Z99.3 Dependence on wheelchair | CPT/HCPCS: 99211 ==